=== PATIENT | male | born 1935 | race Caucasian/White ===

== ENCOUNTER → 2018-11-07 | Outpatient (REF) | payer OTHER, MEDICARE | LOC: EEVIPCON 17:20 → M LAB REF 17:20 | PROVIDERS: ATTEND Podiatrist | DX: L03.031 Cellulitis of right toe (principal) ==

== ENCOUNTER → 2018-12-23 | Outpatient (REF) | payer MEDICARE | LOC: M LAB REF 17:50 | PROVIDERS: ATTEND Podiatrist | DX: L97.512 Non-pressure chronic ulcer of other part of right foot with fat layer exposed (principal); M79.674 Pain in right toe(s) ==

== ENCOUNTER → 2019-11-28 | Outpatient (REF) | payer MEDICARE | LOC: M LAB REF 10:53 | PROVIDERS: ATTEND Podiatrist | DX: M79.671 Pain in right foot (principal) ==

== ENCOUNTER → 2020-03-15 | Outpatient (REF) | payer MEDICARE | LOC: M LAB REF 11:23 | PROVIDERS: ATTEND Podiatrist | DX: L03.119 Cellulitis of unspecified part of limb (principal); M79.671 Pain in right foot ==

== ENCOUNTER 2021-11-01 11:08 | Day surgery (SDC) | payer MEDICARE ==
[~2021-11-01] VITALS: Ht 177.8 cm; Wt 80.7 kg
--- OUTSIDE RECORDS SUMMARY | 2021-11-01 11:15 | CCD | Continuity of Care Document ---
Author Author Earnest SNYDER PA Organization Unknown Address [address] [place] [address], [place] [address] Phone [phone] Care Team Providers [facility] Manager Name Role Phone Navarro Daley MD [facility] [phone] Félix Bernal NP AUTM [phone] Problems Active Problems Provider Date Paroxysmal atrial fibrillation Nathan Boateng MD Onset: 0 03/08/2017 Complete atrioventricular block Nathan Boateng MD Onset: 03/08/2017 Essential hypertension Nathan Boateng MD Onset: 7 Cardiac pacemaker in situ Nathan Boateng MD Onset: 2016 Dietary management surveillance RAMYA Asher Onset: 06/06/2019 Social History Type Date Description Comments Sex Unknown ETOH Use Has consumed alcohol in the past Tobacco Use Start: Unknown End: Unknown Patient is a former smoker A few cigar's a week, quit 2002 Exercise Type/Frequency Does housework daily Exercise Type/Frequency Does yardwork daily Exercise Type/Frequency Walks daily Exercise Limitations Shortness Of Breath Exercise Limitations Dizziness Exercise Limitations Fatigue Allergies and adverse reactions Description No Known Drug Allergies Medications Active Medications SIG Qnty Indications Ordering Provide r Date Proair HFA 108(90Base) mcg/Act Aer osol 2 puffs by mouth as needed Unknown 019 Furosemide 20mg Tablets 1 by mouth every day Unknown 06/05/2019 Metoprolol Tartrate 25mg Tablets 1 by mouth twice a day Unknown 06/05/2019 Simvastatin 20mg Tablets 1 by mouth every day Unknown 03/07/[address] 1 by mouth every day Unknown 03/07/2017 Finasteride 5mg Tablets 1 by mouth every day Nathan Boateng MD 03/07/2017 Xarelto 20mg Tablets 1 by mouth every day Unknown 03/07/2017 Immunizations Description No Information Available Vital Signs Date Vital Result Comment 06/06/2019 11:20am Weight 207.00 lb Height 71 inches 5'11" BMI (Body Mass Index) 28.9 kg/m2 Heart Rate 70 /min BP Systolic Sitting 102 mmHg Large adult cuff/LA BP Diastolic Sitting 62 mmHg Large adult cuff/LA 03/08/2017 2:05pm Weight 228.00 lb Height 71 inches 5'11" BMI (Body Mass Index) 31.8 kg/m2 Heart Rate 70 /min BP Systolic Sitting 131 mmHg adult cuff, Ra BP Diastolic Sitting 78 mmHg adult cuff, Ra Results Description No Information Available Procedures Date Code Description Status 10/27/2021 12368 Office/Outpatient Established Mo d MDM 30-39 Min Completed Medical Devices Description No Information Available Encounters Type Date Location Provider Dx Diagnosis Office Visit 10/27/2021 12:45p Main Office RAMYA Mello Z95 .0 Presence of cardiac pacemaker I10 Essential (primary) hyperten migule a I48.0 Paroxysmal atrial fibrillati on Z71.3 Dietary counseling and surve illance Assessments Date Code Description Provider 10/27/2021 Z95.0 Presence of cardiac pacemaker Ca RAMYA Le 10/27/2021 I10 Essential (primary) hypertension RAMYA Mello 10/27/2021 I48.0 Paroxysmal atrial fibrillation C RAMYA Cameron 10/27/2021 Z71.3 Dietary counseling and surveilla nce RAMYA Mello Plan of Treatment 10/27/2021 - RAMYA Mello* Z95.0 Presence of cardiac pacemaker* Recommendations:* Needs urgent battery change * I10 Essential (primary) hypertension* Recommendations:* Continue Advised patient to please monitor blood pressures at home and to alert our office for readings >140/>90 or <110/<60 * I48.0 Paroxysmal atrial fibrillation * Z71.3 Dietary counseling and surveillance* Recommendations:* Recommended for patient to follow a more whole food diet. Advised patient to avoid overly processed foods and packaged foods. Advised patient to avoid sodas, juices and other liquid calories. Recommended at least 30 minutes of exercise 3 days a week. * All * Follow up:* Needs urgent battery change - next week with Dr. Boateng 1 week incision check Functional Status Functional Condition Comment Date Status Independent with all ADL's Activ e Mental Status Description No Information Available Referrals Description No Information Available
--- OUTSIDE RECORDS SUMMARY | 2021-11-01 11:15 | CCD | Continuity of Care Document ---
Author Author Earnest SNYDER PA Organization Unknown Address [address] [place] [address], [facility] [place] [address] Phone [phone] Care Team Providers [facility] Manager Name Role Phone Navarro Daley MD [facility] [phone] Félix Bernal NP [facility] [phone] Problems Active Problems Provider Date Paroxysmal atrial [...] Available Vital Signs Date Vital Result Comment 10/27/2021 1:34pm Weight 200.00 lb Heart Rate 72 /min regular BP Systolic Sitting 128 mmHg Ra, medium cuff BP Diastolic Sitting 72 mmHg Ra, medium cuff 06/06/2019 11:20am Weight 207.00 lb Height 71 inches 5'11" BMI (Body Mass Index) 28.9 kg/m2 Heart Rate 70 /min BP Systolic Sitting 102 mmHg Large adult cuff/LA BP Diastolic Sitting 62 mmHg Large adult cuff/LA Results Test Acquired Date Facility Test Result H/L Range Note CBC without Differential 09/27/2021 [facility] White Blood Count 12.2 Red Blood Count 4.32 Platelets 233 Hemoglobin 13.4 Hematocrit 38.6 Laboratory test finding 09/27/2021 [facility] Lipase 49 Bilirubin, Direct 0.5 Basic Metabolic Panel 09/27/2021 [facility] Glucose 91 Blood Urea Nitrogen 19 Creatinine 1.07 Sodium 133 Potassium 4.3 Chloride 100 Carbon Dioxide 26.0 Calcium 9.2 GFR (Calculated) 65 Liver Function Test/ Liver Hep 09/27/2021 [facility] Ast/Sgot 41 Alt/SGPT 39 Alk Phos 101 Albumin 3.4 Total Bilirubin 1.5 Total Protein 7.1 A/G Ratio -- Procedures Date Code Description Status 10/27/2021 81502 Office/Outpatient Established Mo d MDM 30-39 Min Completed Medical Devices Description No Information Available Encounters Type Date Location Provider Dx Diagnosis Office Visit 10/27/2021 12:45p Main Office RAM[facility] Mello Z95 .0 Presence of cardiac pacemaker I10 Essential (primary) hyperten miguel a I48.0 Paroxysmal atrial fibrillati on Z71.3 [...] * I10 Essential (primary) hypertension* Recommendations:* Continue metoprolol and furosemide at the current dosages Advised patient to please monitor blood pressures at home and to alert our office for readings >140/>90 or <110/<60 * I48.0 Paroxysmal atrial fibrillation* Recommendations:* Continue metoprolol and Xarelto at the current dosages Patient agreeable to contact us with any episodes of tachycardia or palpitations * Z71.3 Dietary counseling and surveillance* Recommendations:* [...]
--- OUTSIDE RECORDS SUMMARY | 2021-11-01 11:16 | CCD ---
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 Name Role Phone Cong Sandhu MD Unavailable Unavailable Cong Sandhu MD Unavailable Unavailable Cong Sandhu MD Unavailable Unavailable Cong Sandhu MD Unavailable Unavailable Cong Sandhu MD Unavailable Unavailable Cong Sandhu MD Unavailable Unavailable Trickey, J Mimi PA Unavailable Unavailable Trickey, J Mimi PA Unavailable Unavailable Trickey, J Mimi PA Unavailable Unavailable Trickey, J Mimi PA Unavailable Unavailable Trickey, J Mimi PA Unavailable Unavailable Trickey, J Mimi PA Unavailable Unavailable Trickey, J Mimi PA Unavailable Unavailable Trickey, J Mimi PA Unavailable Unavailable Trickey, J Mimi PA Unavailable Unavailable Trickey, J Mimi PA Unavailable Unavailable Trickey, J Mimi PA Unavailable Unavailable Trickey, J Mimi PA Unavailable Unavailable Trickey, J Mimi PA Unavailable Unavailable Trickey, J Mimi PA Unavailable Unavailable Trickey, J Mimi PA Unavailable Unavailable Trickey, J Mimi PA Unavailable Unavailable Trickey, J Mimi PA Unavailable Unavailable Trickey, J Mimi PA Unavailable Unavailable Trickey, J Mimi PA Unavailable Unavailable Trickey, J Mimi PA Unavailable Unavailable Trickey, J Mimi PA Unavailable Unavailable Trickey, J Mimi PA Unavailable Unavailable Trickey, J Mimi PA Unavailable Unavailable Trickey, J Mimi PA Unavailable Unavailable Trickey, J Mimi PA Unavailable Unavailable Trickey, J Mimi PA Unavailable Unavailable Trickey, J Mimi PA Unavailable Unavailable Trickey, J Mimi PA Unavailable Unavailable Trickey, J Mimi PA Unavailable Unavailable Trickey, J Mimi PA Unavailable Unavailable Trickey, J Mimi PA Unavailable Unavailable Trickey, J Mimi PA Unavailable Unavailable Trickey, J Mimi PA Unavailable Unavailable Trickey, J Mimi PA Unavailable Unavailable Trickey, J Mimi PA Unavailable Unavailable Trickey, J Mimi PA Unavailable Unavailable Trickey, J Mimi PA Unavailable Unavailable Trickey, J Mimi PA Unavailable Unavailable Trickey, J Mimi PA Unavailable Unavailable Trickey, J Mimi PA Unavailable Unavailable Trickey, J Mimi PA Unavailable Unavailable Trickey, J Mimi PA Unavailable Unavailable Trickey, J Mimi PA Unavailable Unavailable Trickey, J Mimi PA Unavailable Unavailable Trickey, J Mimi PA Unavailable Unavailable Trickey, J Mimi PA Unavailable Unavailable Trickey, J Mimi PA Unavailable Unavailable Trickey, J Mimi PA Unavailable Unavailable Trickey, J Mimi PA Unavailable Unavailable JYOTHI IV, L JOSEPHINE INDUSTRIAL ELECTRICIAN Unavailable Unavailable JYOTHI IV, L JOSEPHINE INDUSTRIAL ELECTRICIAN Unavailable Unavailable JYOTHI IV, L JOSEPHINE INDUSTRIAL ELECTRICIAN Unavailable Unavailable JYOTHI IV, L JOSEPHINE INDUSTRIAL ELECTRICIAN Unavailable Unavailable JYOTHI IV, L JOSEPHINE INDUSTRIAL ELECTRICIAN Unavailable Unavailable JYOTHI IV, L JOSEPHINE INDUSTRIAL ELECTRICIAN Unavailable Unavailable JYOTHI IV, L JOSEPHINE INDUSTRIAL ELECTRICIAN Unavailable Unavailable JYOTHI IV, L JOSEPHINE INDUSTRIAL ELECTRICIAN Unavailable Unavailable JYOTHI IV, L JOSEPHINE INDUSTRIAL ELECTRICIAN Unavailable Unavailable JYOTHI IV, L JOSEPHINE INDUSTRIAL ELECTRICIAN Unavailable Unavailable JYOTHI IV, L JOSEPHINE INDUSTRIAL ELECTRICIAN Unavailable Unavailable JYOTHI IV, L JOSEPHINE INDUSTRIAL ELECTRICIAN Unavailable Unavailable JYOTHI IV, L JOSEPHINE INDUSTRIAL ELECTRICIAN Unavailable Unavailable JYOTHI IV, L JOSEPHINE INDUSTRIAL ELECTRICIAN Unavailable Unavailable JYOTHI IV, L JOSEPHINE INDUSTRIAL ELECTRICIAN Unavailable Unavailable JYOTHI IV, L JOSEPHINE INDUSTRIAL ELECTRICIAN Unavailable Unavailable JYOTHI IV, L JOSEPHINE INDUSTRIAL ELECTRICIAN Unavailable Unavailable JYOTHI IV, L JOSEPHINE INDUSTRIAL ELECTRICIAN Unavailable Unavailable JYOTHI IV, L JOSEPHINE INDUSTRIAL ELECTRICIAN Unavailable Unavailable JYOTHI IV, L JOSEPHINE INDUSTRIAL ELECTRICIAN Unavailable Unavailable JYOTHI IV, L JOSEPHINE INDUSTRIAL ELECTRICIAN Unavailable Unavailable JYOTHI IV, L JOSEPHINE INDUSTRIAL ELECTRICIAN Unavailable Unavailable JYOTHI IV, L JOSEPHINE INDUSTRIAL ELECTRICIAN Unavailable Unavailable JYOTHI IV, L JOSEPHINE INDUSTRIAL ELECTRICIAN Unavailable Unavailable JYOTHI IV, L JOSEPHINE INDUSTRIAL ELECTRICIAN Unavailable Unavailable JYOTHI IV, L JOSEPHINE INDUSTRIAL ELECTRICIAN Unavailable Unavailable JYOTHI IV, L JOSEPHINE INDUSTRIAL ELECTRICIAN Unavailable Unavailable JYOTHI IV, L JOSEPHINE INDUSTRIAL ELECTRICIAN Unavailable Unavailable JYOTHI IV, L JOSEPHINE INDUSTRIAL ELECTRICIAN Unavailable Unavailable JYOTHI IV, L JOSEPHINE INDUSTRIAL ELECTRICIAN Unavailable Unavailable JYOTHI IV, L JOSEPHINE INDUSTRIAL ELECTRICIAN Unavailable Unavailable JYOTHI IV, L JOSEPHINE INDUSTRIAL ELECTRICIAN Unavailable Unavailable JYOTHI IV, L JOSEPHINE INDUSTRIAL ELECTRICIAN Unavailable Unavailable JYOTHI IV, L JOSEPHINE INDUSTRIAL ELECTRICIAN Unavailable Unavailable JYOTHI IV, L JOSEPHINE INDUSTRIAL ELECTRICIAN Unavailable Unavailable JYOTHI IV, L JOSEPHINE INDUSTRIAL ELECTRICIAN Unavailable Unavailable JYOTHI IV, L JOSEPHINE INDUSTRIAL ELECTRICIAN Unavailable Unavailable JYOTHI IV, L JOSEPHINE INDUSTRIAL ELECTRICIAN Unavailable Unavailable JYOTHI IV, L JOSEPHINE INDUSTRIAL ELECTRICIAN Unavailable Unavailable Dumont, Maritza BUI Unavailable + DumontMaritza Unavailable + DumontMaritza Unavailable + DumontMaritza Unavailable + DumontMaritza Unavailable + DumontMaritza Unavailable + DumontMaritza Unavailable + DumontMaritza Unavailable + DumontMaritza Unavailable + DumontMaritza Unavailable + Maritza Dumont Unavailable Lundi, Jagdeep DPM Unavailable Unavailable Lundi, Jagdeep DPM Unavailable Unavailable Lundi, Jagdeep DPM Unavailable Unavailable Lundi, Jagdeep DPM Unavailable Unavailable Lundi, Jagdeep DPM Unavailable Unavailable Lundi, Jagdeep DPM Unavailable Unavailable Lundi, Jagdeep DPM Unavailable Unavailable Lundi, Jagdeep DPM Unavailable Unavailable Lundi, Jagdeep DPM Unavailable Unavailable Lundi, Jagdeep DPM Unavailable Unavailable Lundi, Jagdeep DPM Unavailable Unavailable Lundi, Jagdeep DPM Unavailable Unavailable Lundi, Jagdeep DPM Unavailable Unavailable Lundi, Jagdeep DPM Unavailable Unavailable Lundi, Jagdeep DPM Unavailable Unavailable Lundi, Jagdeep DPM Unavailable Unavailable Lundi, Jagdeep DPM Unavailable Unavailable Lundi, Jagdeep DPM Unavailable Unavailable Lundi, Jagdeep DPM Unavailable Unavailable Lundi, Jagdeep DPM Unavailable Unavailable Lundi, Jagdeep DPM Unavailable Unavailable Lundi, Jagdeep DPM Unavailable Unavailable Lundi, Jagdeep DPM Unavailable Unavailable Lundi, Jagdeep DPM Unavailable Unavailable Lundi, Jagdeep DPM Unavailable Unavailable Liliana Alejo IV INDUSTRIAL ELECTRICIAN Unavailable Unavailable Liliana Alejo IV INDUSTRIAL ELECTRICIAN Unavailable Unavailable Liliana Alejo IV INDUSTRIAL ELECTRICIAN Unavailable Unavailable Melo SULLIVAN, Liliana Lua INDUSTRIAL ELECTRICIAN Unavailable Unavailable WasecaCong Cornelius PA Unavailable Unavailable WasecaCong Cornelius PA Unavailable Unavailable WasecaCong Cornelius PA Unavailable Unavailable WasecaCong Cornelius PA Unavailable Unavailable JYOTHI, E ROXI PREPRESS MANAGER Unavailable Unavailable JYOTHI, E ROXI PREPRESS MANAGER Unavailable Unavailable JYOTHI, E ROXI PREPRESS MANAGER Unavailable Unavailable JYOTHI, E ROXI PREPRESS MANAGER Unavailable Unavailable JYOTHI, E ROXI PREPRESS MANAGER Unavailable Unavailable JYOTHI, E ROXI PREPRESS MANAGER Unavailable Unavailable JYOTHI, E ROXI PREPRESS MANAGER Unavailable Unavailable JYOTHI, E ROXI PREPRESS MANAGER Unavailable Unavailable JYOTHI, E ROXI PREPRESS MANAGER Unavailable Unavailable JYOTHI, E ROXI PREPRESS MANAGER Unavailable Unavailable JYOTHI, E ROXI PREPRESS MANAGER Unavailable Unavailable JYOTHI, E ROXI PREPRESS MANAGER Unavailable Unavailable JYOTHI, E ROXI PREPRESS MANAGER Unavailable Unavailable JYOTHI, E ROXI PREPRESS MANAGER Unavailable Unavailable JYOTHI, E ROXI PREPRESS MANAGER Unavailable Unavailable JYOTHI, E ROXI PREPRESS MANAGER Unavailable Unavailable JYOTHI, E ROXI PREPRESS MANAGER Unavailable Unavailable JYOTHI, E ROXI PREPRESS MANAGER Unavailable Unavailable JYOTHI, E ROXI PREPRESS MANAGER Unavailable Unavailable JYOTHI, E ROXI PREPRESS MANAGER Unavailable Unavailable Steffen ROE PREPRESS MANAGER Unavailable Unavailable Steffen ROE PREPRESS MANAGER Unavailable Unavailable Steffen ROE PREPRESS MANAGER Unavailable Unavailable Steffen ROE PREPRESS MANAGER Unavailable Unavailable Fabi Elkins MD Unavailable Unavailable Fabi Elkins MD Unavailable Unavailable Fabi Elkins MD Unavailable Unavailable Chandler Mcclendon MD Unavailable Unavailable Chandler Mcclendon MD Unavailable Unavailable Chandler Mcclendon MD Unavailable Unavailable Chandler Mcclendon MD Unavailable Unavailable Chandler Mcclendon MD Unavailable Unavailable Chandler Mcclendon MD Unavailable Unavailable Chandler Mcclendon MD Unavailable Unavailable Chandler Mcclendon MD Unavailable Unavailable Chandler Mcclendon MD Unavailable Unavailable Chandler Mcclendon MD Unavailable Unavailable Chandler Mcclendon MD Unavailable Unavailable Chandler Mcclendon MD Unavailable Unavailable Chandler Mcclendon MD Unavailable Unavailable Chandler Mcclendon MD Unavailable Unavailable Chandler Mcclendon MD Unavailable Unavailable Chandler Mcclendon MD Unavailable Unavailable Chandler Mcclendon MD Unavailable Unavailable Chandler Mcclendon MD Unavailable Unavailable Chandler Mcclendon MD Unavailable Unavailable Chandler Mcclendon MD Unavailable Unavailable Chandler Mcclendon MD Unavailable Unavailable ROSA MARIA, JAYLEEN CORTEZ Unavailable Unavailable ROSA MARIA, JAYLEEN MD Unavailable Unavailable ROSA MARIA, JAYLEEN MD Unavailable Unavailable ROSA MARIA, JAYLEEN MD Unavailable Unavailable ROSA MARIA, JAYLEEN MD Unavailable Unavailable ROSA MARIA, JAYLEEN MD Unavailable Unavailable ROSA MARIA, JAYLEEN MD Unavailable Unavailable ROSA MARIA, JAYLEEN MD Unavailable Unavailable ROSA MARIA, JAYLEEN MD Unavailable Unavailable ROSA MARIA, JAYLEEN MD Unavailable Unavailable ROSA MARIA, JAYLEEN MD Unavailable Unavailable ROSA MARIA, JAYLEEN MD Unavailable Unavailable ROSA MARIA, JAYLEEN MD Unavailable Unavailable ROSA MARIA, JAYLEEN MD Unavailable Unavailable ROSA MARIA, JAYLEEN MD Unavailable Unavailable ROSA MARIA, JAYLEEN MD Unavailable Unavailable ROSA MARIA, JAYLEEN MD Unavailable Unavailable ROSA MARIA, JAYLEEN MD Unavailable Unavailable ROSA MARIA, JAYLEEN MD Unavailable Unavailable ROSA MARIA, JAYLEEN MD Unavailable Unavailable ROSA MARIA, JAYLEEN MD Unavailable Unavailable ROSA MARIA, JAYLEEN MD Unavailable Unavailable ROSA MARIA, JAYLEEN MD Unavailable Unavailable ROSA MARIA, JAYLEEN MD Unavailable Unavailable ROSA MARIA, JAYLEEN MD Unavailable Unavailable ROSA MARIA, JAYLEEN MD Unavailable Unavailable ROSA MARIA, JAYLEEN MD Unavailable Unavailable ROSA MARIA, JAYLEEN MD Unavailable Unavailable ROSA MARIA, JAYLEEN MD Unavailable Unavailable ROSA MARIA, JAYLEEN MD Unavailable Unavailable ROSA MARIA, JAYLEEN MD Unavailable Unavailable ROSA MARIA, JAYLEEN MD Unavailable Unavailable ROSA MARIA, JAYLEEN MD Unavailable Unavailable ROSA MARIA, JAYLEEN MD Unavailable Unavailable ROSA MARIA, JAYLEEN MD Unavailable Unavailable ROSA MARIA, JAYLEEN MD Unavailable Unavailable ROSA MARIA, JAYLEEN MD Unavailable Unavailable ROSA MARIA, JAYLEEN MD Unavailable Unavailable ROSA MARIA, JAYLEEN MD Unavailable Unavailable ROSA MARIA, JAYLEEN MD Unavailable Unavailable ROSA MARIA, JAYLEEN MD Unavailable Unavailable ROSA MARIA, JAYLEEN MD Unavailable Unavailable ROSA MARIA, JAYLEEN MD Unavailable Unavailable Lucille Peck MD Unavailable Unavailable LILLIAN, L BROOKE PA Unavailable Unavailable LILLIAN, L BROOKE PA Unavailable Unavailable LILLIAN, L BROOKE PA Unavailable Unavailable LILLIAN, L BROOKE PA Unavailable Unavailable LILLIAN, L BROOKE PA Unavailable Unavailable LILLIAN, L BROOKE PA Unavailable Unavailable LILLIAN, L BROOKE PA Unavailable Unavailable LILLIAN, L BROOKE PA Unavailable Unavailable LILLIAN, L BROOKE PA Unavailable Unavailable LILLIAN, L BROOKE PA Unavailable Unavailable LILLIAN, L BROOKE PA Unavailable Unavailable LILLIAN, L BROOKE PA Unavailable Unavailable LILLIAN, L BROOKE PA Unavailable Unavailable LILLIAN, L BROOKE PA Unavailable Unavailable LILLIAN, L BROOKE PA Unavailable Unavailable LILLIAN, L BROOKE PA Unavailable Unavailable ROSA MARIA, JAYLEEN MD Unavailable Unavailable ROSA MARIA, JAYLEEN MD Unavailable Unavailable ROSA MARIA, JAYLEEN MD Unavailable Unavailable ROSA MARIA, JAYLEEN MD Unavailable Unavailable ROSA MARIA, JAYLEEN MD Unavailable Unavailable ROSA MARIA, JAYLEEN MD Unavailable Unavailable ROSA MARIA, JAYLEEN MD Unavailable Unavailable ROSA MARIA, JAYLEEN MD Unavailable Unavailable ROSA MARIA, JAYLEEN MD Unavailable Unavailable ROSA MARIA, JAYLEEN MD Unavailable Unavailable ROSA MARIA, JAYLEEN MD Unavailable Unavailable ROSA MARIA, JAYELEN MD Unavailable Unavailable ROSA MARIA, JAYLEEN MD Unavailable Unavailable ROSA MARIA, JAYLEEN MD Unavailable Unavailable ROSA MARIA, JAYLEEN MD Unavailable Unavailable ROSA MARIA, JAYLEEN MD Unavailable Unavailable ROSA MARIA, JAYLEEN MD Unavailable Unavailable ROSA MARIA, JAYLEEN MD Unavailable Unavailable ROSA MARIA, JAYLEEN MD Unavailable Unavailable ROSA MARIA, JAYLEEN MD Unavailable Unavailable ROSA MARIA, JAYLEEN MD Unavailable Unavailable ROSA MARIA, JAYLEEN MD Unavailable Unavailable ROSA MARIA, JAYLEEN MD Unavailable Unavailable ROSA MARIA, JAYLEEN MD Unavailable Unavailable ROSA MARIA, JAYLEEN MD Unavailable Unavailable ROSA MARIA, JAYLEEN MD Unavailable Unavailable ROSA MARIA, JAYLEEN MD Unavailable Unavailable ROSA MARIA, JAYLEEN MD Unavailable Unavailable ROSA MARIA, JAYLEEN MD Unavailable Unavailable ROSA MARIA, JAYLEEN MD Unavailable Unavailable ROSA MARIA, JAYLEEN MD Unavailable Unavailable ROSA MARIA, JAYLEEN MD Unavailable Unavailable ROSA MARIA, JAYLEEN MD Unavailable Unavailable ROSA MARIA, JAYLEEN MD Unavailable Unavailable ROSA MARIA, JAYLEEN MD Unavailable Unavailable ROSA MARIA, JAYLEEN MD Unavailable Unavailable ROSA MARIA, JAYLEEN MD Unavailable Unavailable ROSA MARIA, JAYLEEN MD Unavailable Unavailable ROSA MARIA, JAYLEEN MD Unavailable Unavailable ROSA MARIA, JAYLEEN MD Unavailable Unavailable ROAS MARIA, JAYLEEN MD Unavailable Unavailable ROSA MARIA, JAYLEEN MD Unavailable Unavailable ROSA MARIA, JAYLEEN MD Unavailable Unavailable Cisco, Lucille Mejia MD Unavailable Unavailable Cisco, Lucille Mejia MD Unavailable Unavailable BROUGHAL, C IBIS PA Unavailable Unavailable BROUGHAL, C IBIS PA Unavailable Unavailable BROUGHAL, C IBIS PA Unavailable Unavailable BROUGHAL, C IBIS PA Unavailable Unavailable BROUGHAL, C IBIS PA Unavailable Unavailable BROUGHAL, C IBIS PA Unavailable Unavailable DAY, LARS MD Unavailable Unavailable DAY, LARS MD Unavailable Unavailable DAY, LARS MD Unavailable Unavailable DAY, LARS MD Unavailable Unavailable DAY, LARS MD Unavailable Unavailable DAY, LARS MD Unavailable Unavailable DAY, LARS MD Unavailable Unavailable DAY, LARS MD Unavailable Unavailable DAY, LARS MD Unavailable Unavailable DAY, LARS MD Unavailable Unavailable DAY, LARS MD Unavailable Unavailable DAY, LARS MD Unavailable Unavailable DAY, LARS MD Unavailable Unavailable DAY, LARS MD Unavailable Unavailable DAY, LARS MD Unavailable Unavailable DAY, LARS MD Unavailable Unavailable DAY, LARS MD Unavailable Unavailable DAY, LARS MD Unavailable Unavailable DAY, LARS MD Unavailable Unavailable DAY, LARS MD Unavailable Unavailable DAY, LARS MD Unavailable Unavailable DAY, LARS MD Unavailable Unavailable DAY, LARS MD Unavailable Unavailable DAY, LARS MD Unavailable Unavailable DAY, LARS MD Unavailable Unavailable DAY, LARS MD Unavailable Unavailable DAY, LARS MD Unavailable Unavailable DAY, LARS MD Unavailable Unavailable Re-disclosure Warning The records that you are about to access may contain information from federally-assisted alcohol or drug abuse programs. If such information is present, then the following federally mandated warning applies: This information has been disclosed to you from records protected by federal confidentiality rules (42 CFR part 2). The federal rules prohibit you from making any further disclosure of this information unless further disclosure is expressly permitted by the written consent of the person to whom it pertains or as otherwise permitted by 42 CFR part 2. A general authorization for the release of medical or other information is NOT sufficient for this purpose. The Federal rules restrict any use of the information to criminally investigate or prosecute any alcohol or drug abuse patient.The records that you are about to access may contain highly sensitive health information, the redisclosure of which is protected by Article 27-F of the [facility] Public Health law. If you continue you may have access to information: Regarding HIV / AIDS; Provided by facilities licensed or operated by the [facility] Office of Mental Health; or Provided by the [facility] Office for People With Developmental Disabilities. If such information is present, then the following [facility] mandated warning applies: This information has been disclosed to you from confidential records which are protected by state law. State law prohibits you from making any further disclosure of this information without the specific written consent of the person to whom it pertains, or as otherwise permitted by law. Any unauthorized further disclosure in violation of state law may result in a fine or custodial sentence or both. A general authorization for the release of medical or other information is NOT sufficient authorization for further disc losure. Family History Family Member Name Family Member Gender Family Member Status Date o f Status Description Data Source(s) Unknown Male Problem [facility] ([facility] Encounters Encounter Providers Location Date Indications Data Source(s ) Outpatient Attender: BROOKE BUI Main Office 10/27/2021 1 1:45:00 AM EST [facility] ([facility] Outpatient Attender: JOSEPHINE ROE ED-HCCEDWPC 2020 10:58:00 AM EST - 10/13/2021 10:59:00 AM EST [facility] Patient discharged. Outpatient Attender: Jagdeep Zambrano DPM 09/30/2021 01:28:00 PM EDT [facility] Emergency Attender: Amish Sandhu MDA ttender: Jackie Peck MDAttender: Jackie Peck MD [facility]-ED 09/27/2021 07:11:00 PM EDT - 09/28/2021 04:15:00 AM EDT [facility] Patient discharged. Outpatient Attender: JOSEPHINE ROE IV ED-HCCEDWPCP 2020 11:03:00 AM EDT - 09/06/2021 11:04:00 AM EDT [facility] Patient discharged. [place] [address] [facility] [address] 06/09/2021 12:00:00 AM EDT eCW1 ([facility]) [place] [address] [facility] [address] 06/08/2021 12:00:00 AM EDT eCW1 ([facility]) Outpatient Attender: Baltazar Mcclendon MD [facility] 09:53:00 AM EDT - 05/05/2021 09:54:00 [facility]. Emergency Attender: Lizette Munoz PAAttender: Isiah hernández MD [facility] 04/14/2021 03:59:00 PM EDT - 04/14/2021 06:06:00 PM EDT HIP PAIN,HIGH BLOOD PRESSURE,CHEST PAIN [facility] HIP PAIN,HIGH BLOOD PRESSURE,CHEST PAIN Patient discharged. [place] [address] [facility] [address] 03/30/2021 12:00:00 AM EDT eCW1 ([facility]) [place] [address] [facility] [address] 03/23/2021 12:00:00 AM EDT eCW1 ([facility]) [place] [address] [address] 03/03/2021 12:00:00 AM EDT eCW1 ([facility]) [place] [address] [address] 01/27/2021 12:00:00 AM EST eCW1 [facility] [place] [address] [facility] [address] 01/18/2021 12:00:00 AM EST eCW1 [facility] [place] [address] [address] 12/20/2020 12:00:00 AM EST eCW1 ([facility]) [place] [address] [address] 12/16/2020 12:00:00 AM EST eCW1 ([facility]) [place] [address] [facility] [address] 12/14/2020 12:00:00 AM EST eCW1 ([facility]) Outpatient Attender: Mimi BUI Main office [facility] 11/29/2020 01:00:00 PM EST MEDENT ([facility] Anupama andrews, [facility]) Emergency Attender: Stoney Alejo IVAttender: Isiah tian MD [facility]-ED 11/15/2020 11:06:00 AM EST - 11/15/2020 03:00:00 PM EST ALTERED MENTAL STATUS [facility] ALTERED MENTAL STATUS Patient discharged. Outpatient Attender: Baltazar Mcclendon MD [facility] 07:48:00 AM EST - 11/02/2020 07:49:00 AM EST [facility] Patient discharged. Outpatient Attender: JAYLEEN CRANE MD [facility] 10/25/2020 09:48:00 A [facility] Outpatient Attender: IBIS BUI [facility] 11/28/2019 11:15:00 AM EST COVID TEST, TRAVEL [facility] COVID TEST, TRAVEL Emergency Attender: Isiah Elkins [facility] 02:18:00 PM EDT - 09/20/2020 03:53:00 PM EDT [facility] Patient discharged. Preadmit Attender: Isiah Elkins MD [facility] 09/20/2020 02:18 :00 PM EDT [facility] Emergency Attender: Stoney Dumont PAAttender: Isiah mireles MD [facility]-ED 09/20/2020 02:18:00 PM EDT - 09/20/2020 03:53:00 PM EDT ARM INJURY [facility] ARM INJURY Patient discharged. Outpatient Attender: JAYLEEN CRANE MD Main [facility] 09/13/2020 01:00:00 PM EDT MEDENT ([facility] Anupama andrews, [facility]) Outpatient Attender: ROXI ROE NP [facility] 06/07/2020 09:17:00 A M EDT [facility] Outpatient Attender: IKER DAY MD [facility] 11/07/2019 11:00:00 AM EST [facility] Immunizations Vaccine Date Status Description Data Source(s) COVID-19 VACCINE Pfizer 10/25/2021 12:00:00 AM EST completed [facility] Vaccine Series Complete: YESThis Data wa s Submitted to [facility] Via [employer]. COVID-19 VACC, MRNA([facility])/PF 10/25/2021 12:00:00 AM EST completed [facility] COVID-19 VACCINE Pfizer 01/22/2021 12:00:00 AM EST completed [facility] Vaccine Series Complete: YESThis Data wa s Submitted to [facility] Via [employer]. COVID-19 VACCINE Pfizer 01/01/2021 12:00:00 AM EST completed [facility] Vaccine Series Complete: NOThis Data was Submitted to [facility] Via [employer]. Medications Medication Brand Name Start Date Product Form Dose Route Admi nistrative Instructions Pharmacy Instructions Status Indications Reaction Description Data Source(s) Finasteride 5 MG Oral Tablet FINASTERIDE 10/21/2021 12:00:00 AM EST ta blet 90 TAKE ONE TABLET BY MOUTH EVERY DAY TAKE ONE TABLET BY MOUTH EVERY DAY SOLD: 10/22/2021 [facility] 240 mcg/0.7 mL 09/15/2021 12:00:00 AM EDT syringe 0 USE DIRECTED USE DIRECTED SOLD: 09/15/2021 [facility] 8 mg 08/03/2021 12:00:00 AM EDT tablet extended release 24 hr 30 TAKE ONE TABLET BY MOUTH EVERY DAY TAKE ONE TABLET BY MOUTH EVERY DAY SOLD: 09/28/2021 [facility] 8 mg 08/03/2021 12:00:00 AM EDT tablet extended release 24 hr 30 TAKE ONE TABLET BY MOUTH EVERY DAY TAKE ONE TABLET BY MOUTH EVERY DAY SOLD: 08/03/2021 [facility] 8 mg 08/03/2021 12:00:00 AM EDT tablet extended release 24 hr 30 TAKE ONE TABLET BY MOUTH EVERY DAY TAKE ONE TABLET BY MOUTH EVERY DAY SOLD: 09/01/2021 [facility] 2 % 04/09/2021 12:00:00 AM EDT cream 30 APPLY TO AFFECTED AREA(S) ONCE DAILY APPLY TO AFFECTED AREA(S) ONCE DAILY SOLD: 04/16/2021 [facility] 2 % 04/09/2021 12:00:00 AM EDT cream 30 APPLY TO AFFECTED AREA(S) ONCE DAILY APPLY TO AFFECTED AREA(S) ONCE DAILY SOLD: 06/08/2021 [facility] 20 mg 03/07/2021 12:00:00 AM EDT capsule,delayed release (DR/EC) 90 TAKE ONE CAPSULE BY MOUTH EVERY DAY TAKE ONE CAPSULE BY MOUTH EVERY DAY SOLD: 03/09/2021 [facility] 20 mg 03/07/2021 12:00:00 AM EDT capsule,delayed release (DR/EC) 90 TAKE ONE CAPSULE BY MOUTH EVERY DAY TAKE ONE CAPSULE BY MOUTH EVERY DAY SOLD: 09/13/2021 [facility] 20 mg 03/07/2021 12:00:00 AM EDT capsule,delayed release (DR/EC) 90 TAKE ONE CAPSULE BY MOUTH EVERY DAY TAKE ONE CAPSULE BY MOUTH EVERY DAY SOLD: 06/16/2021 [facility] 0.4 mg 03/05/2021 12:00:00 AM EDT capsule 180 TAKE TWO CAPSULES BY MOUTH AT BEDTIME TAKE TWO CAPSULES BY MOUTH AT BEDTIME SOLD: 03/06/2021 [facility] 0.4 mg 03/05/2021 12:00:00 AM EDT capsule 180 TAKE TWO CAPSULES BY MOUTH AT BEDTIME TAKE TWO CAPSULES BY MOUTH AT BEDTIME SOLD: 06/08/2021 [facility] 0.4 mg 03/05/2021 12:00:00 AM EDT capsule 180 TAKE TWO CAPSULES BY MOUTH AT BEDTIME TAKE TWO CAPSULES BY MOUTH AT BEDTIME SOLD: 09/09/2021 [facility] 20 mg 02/12/2021 12:00:00 AM EDT tablet 90 TAKE ONE TABLET BY MOUTH EVERY EVENING TAKE ONE TABLET BY MOUTH EVERY EVENING SOLD: 08/17/2021 [facility] 20 mg 02/12/2021 12:00:00 AM EDT tablet 90 TAKE ONE TABLET BY MOUTH EVERY EVENING TAKE ONE TABLET BY MOUTH EVERY EVENING SOLD: 02/13/2021 [facility] 20 mg 02/12/2021 12:00:00 AM EDT tablet 90 TAKE ONE TABLET BY MOUTH EVERY EVENING TAKE ONE TABLET BY MOUTH EVERY EVENING SOLD: 05/18/2021 [facility] 2 % 02/11/2021 12:00:00 AM EDT cream 45 APPLY 1 APPLICATION TO AFFECTED AREA(S) DAILY APPLY 1 APPLICATION TO AFFECTED AREA(S) DAILY SOLD: 02/13/2021 [facility] 0.4 mg 01/28/2021 12:00:00 AM EST capsule 90 TAKE TWO CAPSULES BY MOUTH EVERY DAY AT BEDTIME TAKE TWO CAPSULES BY MOUTH EVERY DAY AT BEDTIME SOLD: 01/28/2021 [facility] Finasteride 5 MG Oral Tablet FINASTERIDE 12/31/2020 12:00:00 AM EST ta blet 90 TAKE ONE TABLET BY MOUTH EVERY DAY TAKE ONE TABLET BY MOUTH EVERY DAY SOLD: 07/16/2021 [facility] Finasteride 5 MG Oral Tablet FINASTERIDE 12/31/2020 12:00:00 AM EST ta blet 90 TAKE ONE TABLET BY MOUTH EVERY DAY TAKE ONE TABLET BY MOUTH EVERY DAY SOLD: 04/06/2021 [facility] Finasteride 5 MG Oral Tablet FINASTERIDE 12/31/2020 12:00:00 AM EST ta blet 90 TAKE ONE TABLET BY MOUTH EVERY DAY TAKE ONE TABLET BY MOUTH EVERY DAY SOLD: 01/01/2021 [facility] 50 mg 12/28/2020 12:00:00 AM EST tablet extended release 24 hr 30 TAKE ONE TABLET BY MOUTH EVERY DAY TAKE ONE TABLET BY MOUTH EVERY DAY SOLD: 01/24/2021 [facility] 50 mg 12/28/2020 12:00:00 AM EST tablet extended release 24 hr 30 TAKE ONE TABLET BY MOUTH EVERY DAY TAKE ONE TABLET BY MOUTH EVERY DAY SOLD: 12/29/2020 [facility] 24 HR mirabegron 50 MG Extended Release Oral Tablet [M yrbetriq] Myrbetriq 50 MG Myrbetriq 50 MG 12/20/2020 12:00:00 AM EST 1.0 {tablet} active Myrbetriq 50 MG eCW1 ([facility]) 24 HR mirabegron 50 MG Extended Release Oral Tablet [M yrbetriq] Myrbetriq 50 MG Myrbetriq 50 MG 12/20/2020 12:00:00 AM EST 1.0 {tablet} active Myrbetriq 50 MG eCW1 ([facility]) 24 HR Fesoterodine Fumarate 4 MG Extende d Release Oral Tablet [Toviaz] Toviaz 4 MG Toviaz 4 MG 12/20/2020 12:00:00 AM EST 1.0 {tablet} active Toviaz 4 MG eCW1 ([facility]) 24 HR Fesoterodine Fumarate 4 MG Extende d Release Oral Tablet [Toviaz] Toviaz 4 MG Toviaz 4 MG 12/20/2020 12:00:00 AM EST 1.0 {tablet} active Toviaz 4 MG eCW1 ([facility]) 24 HR mirabegron 50 MG Extended Release Oral Tablet [M yrbetriq] Myrbetriq 50 MG Myrbetriq 50 MG 12/20/2020 12:00:00 AM EST 1.0 {tablet} suspended Myrbetriq 50 MG eCW1 ([facility]) 24 HR Fesoterodine Fumarate 4 MG Extende d Release Oral Tablet [Toviaz] Toviaz 4 MG Toviaz 4 MG 12/20/2020 12:00:00 AM EST 1.0 {tablet} active Toviaz 4 MG eCW1 ([facility]) 24 HR Fesoterodine Fumarate 4 MG Extende d Release Oral Tablet [Toviaz] Toviaz 4 MG Toviaz 4 MG 12/20/2020 12:00:00 AM EST 1.0 {tablet} active Toviaz 4 MG eCW1 ([facility]) 24 HR Fesoterodine Fumarate 4 MG Extende d Release Oral Tablet [Toviaz] Toviaz 4 MG Toviaz 4 MG 12/20/2020 12:00:00 AM EST 1.0 {tablet} active Toviaz 4 MG eCW1 ([facility]) 24 HR mirabegron 50 MG Extended Release Oral Tablet [M yrbetriq] Myrbetriq 50 MG Myrbetriq 50 MG 12/20/2020 12:00:00 AM EST 1.0 {tablet} active Myrbetriq 50 MG eCW1 ([facility]) 24 HR mirabegron 50 MG Extended Release Oral Tablet [M yrbetriq] Myrbetriq 50 MG Myrbetriq 50 MG 12/20/2020 12:00:00 AM EST 1.0 {tablet} active Myrbetriq 50 MG eCW1 ([facility]) 24 HR Fesoterodine Fumarate 4 MG Extende d Release Oral Tablet [Toviaz] Toviaz 4 MG Toviaz 4 MG 12/20/2020 12:00:00 AM EST 1.0 {tablet} active Toviaz 4 MG eCW1 ([facility]) 24 HR Fesoterodine Fumarate 4 MG Extende d Release Oral Tablet [Toviaz] Toviaz 4 MG Toviaz 4 MG 12/20/2020 12:00:00 AM EST 1.0 {tablet} active Toviaz 4 MG eCW1 ([facility]) 24 HR Fesoterodine Fumarate 4 MG Extende d Release Oral Tablet [Toviaz] Toviaz 4 MG Toviaz 4 MG 12/20/2020 12:00:00 AM EST 1.0 {tablet} active Toviaz 4 MG eCW1 ([facility]) 24 HR mirabegron 50 MG Extended Release Oral Tablet [M yrbetriq] Myrbetriq 50 MG Myrbetriq 50 MG 12/20/2020 12:00:00 AM EST 1.0 {tablet} active Myrbetriq 50 MG eCW1 ([facility]) 24 HR mirabegron 50 MG Extended Release Oral Tablet [M yrbetriq] Myrbetriq 50 MG Myrbetriq 50 MG 12/20/2020 12:00:00 AM EST 1.0 {tablet} active Myrbetriq 50 MG eCW1 ([facility]) 24 HR mirabegron 50 MG Extended Release Oral Tablet [M yrbetriq] Myrbetriq 50 MG Myrbetriq 50 MG 12/20/2020 12:00:00 AM EST 1.0 {tablet} active Myrbetriq 50 MG eCW1 ([facility]) 24 HR Fesoterodine Fumarate 4 MG Extende d Release Oral Tablet [Toviaz] Toviaz 4 MG Toviaz 4 MG 12/20/2020 12:00:00 AM EST 1.0 {tablet} active Toviaz 4 MG eCW1 ([facility]) 24 HR mirabegron 50 MG Extended Release Oral Tablet [M yrbetriq] Myrbetriq 50 MG Myrbetriq 50 MG 12/20/2020 12:00:00 AM EST 1.0 {tablet} active Myrbetriq 50 MG eCW1 ([facility]) 24 HR Fesoterodine Fumarate 4 MG Extende d Release Oral Tablet [Toviaz] Toviaz 4 MG Toviaz 4 MG 12/20/2020 12:00:00 AM EST 1.0 {tablet} active Toviaz 4 MG eCW1 ([facility]) 24 HR mirabegron 50 MG Extended Release Oral Tablet [M yrbetriq] Myrbetriq 50 MG Myrbetriq 50 MG 12/20/2020 12:00:00 AM EST 1.0 {tablet} suspended Myrbetriq 50 MG eCW1 ([facility]) 25 mg 12/14/2020 12:00:00 AM EST tablet 90 TAKE ONE TABLET BY MOUTH EVERY DAY WITH FOOD TAKE ONE TABLET BY MOUTH EVERY DAY WITH FOOD SOLD: 12/16/2020 [facility] 25 mg 12/14/2020 12:00:00 AM EST tablet 90 TAKE ONE TABLET BY MOUTH EVERY DAY WITH FOOD TAKE ONE TABLET BY MOUTH EVERY DAY WITH FOOD SOLD: 04/16/2021 [facility] 25 mg 12/14/2020 12:00:00 AM EST tablet 90 TAKE ONE TABLET BY MOUTH EVERY DAY WITH FOOD TAKE ONE TABLET BY MOUTH EVERY DAY WITH FOOD SOLD: 07/20/2021 [facility] No Active Medications 11/30/2020 12:00:00 AM EST completed [facility] ([facility]) PT: Evaluate And Treat 11/30/2020 12:00:00 AM EST active [facility] ([facility]) 20 mg 11/29/2020 12:00:00 AM EST tablet 90 TAKE ONE TABLET BY MOUTH EVERY DAY WITH FOOD TAKE ONE TABLET BY MOUTH EVERY DAY WITH FOOD SOLD: 08/17/2021 [facility] 20 mg 11/29/2020 12:00:00 AM EST tablet 90 TAKE ONE TABLET BY MOUTH EVERY DAY WITH FOOD TAKE ONE TABLET BY MOUTH EVERY DAY WITH FOOD SOLD: 02/19/2021 [facility] 20 mg 11/29/2020 12:00:00 AM EST tablet 90 TAKE ONE TABLET BY MOUTH EVERY DAY WITH FOOD TAKE ONE TABLET BY MOUTH EVERY DAY WITH FOOD SOLD: 12/01/2020 [facility] 20 mg 11/29/2020 12:00:00 AM EST tablet 90 TAKE ONE TABLET BY MOUTH EVERY DAY WITH FOOD TAKE ONE TABLET BY MOUTH EVERY DAY WITH FOOD SOLD: 05/27/2021 [facility] 2 % 11/26/2020 12:00:00 AM EST cream 30 APPLY EXTERNALLY TO AFFECTED AREA ONCE DAILY APPLY EXTERNALLY TO AFFECTED AREA ONCE DAILY SOLD: 01/17/2021 [facility] 2 % 11/26/2020 12:00:00 AM EST cream 45 APPLY EXTERNALLY TO AFFECTED AREA ONCE DAILY APPLY EXTERNALLY TO AFFECTED AREA ONCE DAILY SOLD: 01/17/2021 [facility] 90 mcg/actuation 11/24/2020 12:00:00 AM EST HFA aerosol inha ler 8 INHALE TWO PUFFS BY MOUTH EVERY 6 HOURS NEEDED INHALE TWO PUFFS BY MOUTH EVERY 6 HOURS NEEDED SOLD: 11/24/2020 [facility] 90 mcg/actuation 11/24/2020 12:00:00 AM EST HFA aerosol inha ler 8 INHALE TWO PUFFS BY MOUTH EVERY 6 HOURS NEEDED INHALE TWO PUFFS BY MOUTH EVERY 6 HOURS NEEDED SOLD: 08/17/2021 [facility] 20 mg 11/22/2020 12:00:00 AM EST capsule,delayed release (DR/EC) 90 TAKE ONE CAPSULE BY MOUTH EVERY DAY TAKE ONE CAPSULE BY MOUTH EVERY DAY SOLD: 11/24/2020 [facility] 2 % 08/03/2020 12:00:00 AM EDT cream 90 APPLY TO AFFECTED AREA(S) ONCE DAILY APPLY TO AFFECTED AREA(S) ONCE DAILY SOLD: 07/16/2021 [facility] 25 mg 04/27/2020 12:00:00 AM EDT tablet 30 TAKE 1 TABLET BY MOUTH 1 TO 3 HOURS PRIOR TO INTERCOURSE NEEDED TAKE 1 TABLET BY MOUTH 1 TO 3 HOURS PRIO R TO INTERCOURSE NEEDED SOLD: 11/29/2020 [facility] 20 mg 01/28/2020 12:00:00 AM EST tablet 90 TAKE ONE TABLET BY MOUTH EVERY EVENING TAKE ONE TABLET BY MOUTH EVERY EVENING SOLD: 10/31/2020 [facility] 0.4 mg 01/08/2020 12:00:00 AM EST capsule 180 TAKE TWO CAPSULES BY MOUTH EVERY DAY AT BEDTIME TAKE TWO CAPSULES BY MOUTH EVERY DAY AT BEDTIME SOLD: 10/08/2020 [facility] Finasteride 5 MG Oral Tablet FINASTERIDE 12/11/2019 12:00:00 AM EST ta blet 90 TAKE ONE TABLET BY MOUTH EVERY DAY TAKE ONE TABLET BY MOUTH EVERY DAY SOLD: 09/29/2020 [facility] 20 mg 12/11/2019 12:00:00 AM EST tablet 90 TAKE ONE TABLET BY MOUTH EVERY DAY WITH FOOD TAKE ONE TABLET BY MOUTH EVERY DAY WITH FOOD SOLD: 09/07/2020 [facility] 25 mg 12/11/2019 12:00:00 AM EST tablet 90 TAKE ONE TABLET BY MOUTH EVERY DAY WITH FOOD TAKE ONE TABLET BY MOUTH EVERY DAY WITH FOOD SOLD: 09/17/2020 [facility] Insurance Providers Payer name Policy type / Coverage type Policy ID Covered constitution party ID Covered constitution party's relationship to craig Policy Craig Plan Information MEDICARE [id number] SP [id number] A UHC UNITED MEDICARE COMPLETE G [id number] Self [id number] MEDICARE COMPLETE [id number] SP [id number] UNITED HEALTH MEDICARE [id number] S [id number] MEDICARE COMPLETE[facility] O [id number] S [id number] MEDICARE COMPLETE [id number] SP [id number] [facility] HEALTH CARE OPTIONS [id number] SP [id number] MEDICARE COMPLETE [id number] SP [id number] [facility] HE[facility]ARE OPTIONS [id number] S [id number] MEDICARE [id number] S [id number] MEDICARE [id number] Retired [id number] [facility] HE[facility]ARE OPTIONS [id number] Retired [id number] UNITED HEALTH MEDICARE [id number] S [id number] [facility] HEALTH CARE OPTIONS [id number] SP [id number] [facility] [id number] SP [id number] [facility] [id number] SP [id number] MEDICARE [id number] SP [id number] [id number] MEDICARE [id number] S [id number] V49 [facility] OPTIONS [id number] S [id number] [id number] [id number] S [id number] [id number] [employer] MEDICAL PLAN [id number] [place] [id number] [employer] [id number] S [id number] [facility] Commercial [id number] Self [id number] [facility] Healthcare Options [place] Part B [id number] Self [id number] Medicare (Part B) Medicare Primary [id number] Self [id number] [facility] Part B [id number] Self [id number] [facility] [employer] Commercial [id number] Self [id number] [facility] Healthcare Options [facility] Part B [id number] Self [id number] Medicare (Part B) Medicare Primary [id number] Self [id number] [id number] SPOUSE [id number] [facility] [id number] SP [id number] [employer] EM[employer]OYE[employer] MEDICAL PLAN [id number] [place] [id number] [facility] [employer] Commercial [id number] Self [id number] [facility] Part B [id number] Self [id number] [facility] [employer] Commercial [id number] Self [id number] [facility] -O/P [id number] 18 [id number] [employer] C[employer]TR[employer] O [id number] S [id number] RMO CENTRAL O [id number] S [id number] UNITED HEALTHCARE MEDICARE ADVANTAGE [id number] 1 [id number] [facility] HEALTH CARE OPTIONS -O/P [id number] 18 [id number] MEDICARE -O/P [id number] A [id number] A MEDICARE COMPLETE [id number] SP [id number] UNITED HEALTH MEDICARE [id number] Retired [id number] [facility] HORIZONS [id number] S [id number] Problems, Conditions, and Diagnoses Code Display Name Description Problem Type Effective Dates Data Source(s) Z95.0 Presence of cardiac pacemaker PRESENCE OF CARDIAC PACE MAKER Diagnosis 09/27/2021 07:11:00 PM [facility] Z79.01 assisted (current) use of anticoagulant s LONG-TERM (CURRENT) USE OF ANTICOAGULANTS Diagnosis 09/27/2021 07:11:00 PM [facility] I10 Essential (primary) hypertension ESSENTIAL (PRIMARY) H YPERTENSION Diagnosis 09/27/2021 07:11:00 PM [facility] K59.00 Constipation, unspecified CONSTIPATION, UNSPECIFIED Di agnosis 09/27/2021 07:11:00 PM [facility] H61.23 Impacted cerumen, bilateral IMPACTED CERUMEN, BILATERA L Diagnosis 05/05/2021 09:53:00 AM [facility] Z79.899 Other intermediate card tender (current) drug therapy O THER LONG-TERM (CURRENT) DRUG THERAPY Diagnosis 04/14/2021 03:59:00 PM [facility] E78.5 Hyperlipidemia, unspecified HYPERLIPIDEMIA, UNSPECIFIE D Diagnosis 04/14/2021 03:59:00 PM [facility] N40.0 Benign prostatic hyperplasia without low er urinary tract symptoms BENIGN PROSTATIC HYPERPLASIA WITHOUT LOWER URINRY TRACT SYMP Diagnosis 04/14/2021 03:59:00 PM [facility] I48.91 Unspecified atrial fibrillation UNSPECIFIED ATRI AL FIBRILLATION Diagnosis 04/14/2021 03:59:00 PM [facility] M25.551 Pain in right hip PAIN IN RIGHT HIP Diagnosis 04/14 03:59:00 PM [facility] R07.89 Other chest pain OTHER CHEST PAIN Diagnosis 04/14/2021 03 :59:00 PM [facility] Z87.891 Personal history of nicotine dependence PERSONAL HISTORY OF NICOTINE DEPENDENCE Diagnosis 11/15/2020 11:06:00 AM [facility] R55 Syncope and collapse SYNCOPE AND COLLAPSE Diagnosis 11/15/2020 11:06:00 AM [facility] M62.9 Disorder of muscle, unspecified DISORDER OF MUSCLE, UN SPECIFIED Diagnosis 10/25/2020 09:48:00 AM [facility] M54.5 Low back pain LOW BACK PAIN Diagnosis 10/25/2020 09:48:00 AM [facility] Y92.[address] or not applicable UNSPECIFIED PLACE OR NOT APPLICABLE Diagnosis 09/20/2020 02:18:00 PM [facility] Y93.01 Activity, walking, marching and hiking A CTIVITY, WALKING, MARCHING AND HIKING Diagnosis 09/20/2020 02:18:00 PM [facility] W19.XXXA Unspecified fall, initial encounter UNSP ECIFIED FALL, INITIAL ENCOUNTER Diagnosis 09/20/2020 02:18:00 PM [facility] S63.591A Other specified sprain of right wrist, i nitial encounter OTHER SPECIFIED SPRAIN OF RIGHT WRIST, INITIAL ENCOUNTER Diagnosis 02:18:00 PM [facility] S40.011A Contusion of right shoulder, initial enc ounter CONTUSION OF RIGHT SHOULDER, INITIAL ENCOUNTER Diagnosis 09/20/2020 02:18:00 PM [facility] R35.0 Urinary frequency Urinary frequency Problem 01/18/2021 12:00:00 AM EST eCW1 ([facility]) Surgeries/Procedures Procedure Description Date Indications Data Source(s) OFFICE OUTPATIENT VISIT 25 MINUTES 10/27/2021 12:00:00 AM EST [facility] ([facility] CT ABDOMEN & PELVIS W/O CONTRAST MATERIAL CT ABD & PELVIS W/ O CONTRAST 09/27/2021 12:00:00 AM [facility] URNLS DIP STICK/TABLET REAGENT AUTO MICROSCOPY URINALYSIS AU TO W/SCOPE 09/27/2021 12:00:00 AM [facility] BLOOD COUNT COMPLETE AUTO&AUTO DIFRNTL WBC COUNT COMPLETE CB C W/AUTO DIFF WBC 09/27/2021 12:00:00 AM [facility] BILIRUBIN DIRECT BILIRUBIN DIRECT 09/27/2021 12:00:00 AM [facility] LACTATE ASSAY OF LACTIC ACID 09/27/2021 12:00:00 AM [facility] LIPASE ASSAY OF LIPASE 09/27/2021 12:00:00 AM [facility] COMPREHENSIVE METABOLIC PANEL COMPREHEN METABOLIC PANEL 12/2020 12:00:00 AM [facility] Non-covered item or service NON-COVERED ITEM OR SERVICE 12/2020 12:00:00 AM [facility] EMERGENCY DEPARTMENT VISIT HIGH/URGENT SEVERITY EMERGENCY DE PT VISIT 09/27/2021 12:00:00 AM [facility] Hospital outpatient clinic visit for assessment and ma nagement of a patient Hospital Outpatient Clinic Visit 05/05/2021 12:00:00 AM [facility] RMVL IMPACTED CERUMEN SPX 1/BOTH EARS REMOVE IMPACTED EAR WA X UNI 05/05/2021 12:00:00 AM [facility] 37920 X-RAY EXAM HIP UNI 2-3 VIEWS 04/14/2021 12:00:00 AM [facility] 88309 X-RAY EXAM CHEST 1 VIEW 04/14/2021 12:00:00 AM [facility] ECG ROUTINE ECG W/LEAST 12 LDS TRCG ONLY W/O I&R ELECTROCARD IOGRAM TRACING 04/14/2021 12:00:00 AM [facility] TROPONIN QUANTITATIVE ASSAY OF TROPONIN QUANT 04/14/2021 12:00:00 A M [facility] COLLECTION VENOUS BLOOD VENIPUNCTURE ROUTINE VENIPUNCTURE 12:00:00 AM [facility] CT HEAD/BRAIN W/O CONTRAST MATERIAL CT HEAD/BRAIN W/O DYE 12:00:00 AM [facility] ANTIBODY BORRELIA BURGDORFERI LYME DISEASE LYME DISEASE ANTI BODY 11/15/2020 12:00:00 AM [facility] MAGNESIUM ASSAY OF MAGNESIUM 11/15/2020 12:00:00 AM [facility] C-REACTIVE PROTEIN C-REACTIVE PROTEIN 11/15/2020 12:00:00 AM [facility] IV INFUSION HYDRATION INITIAL 31 MIN-1 HOUR HYDRATION IV INF USION INIT 11/15/2020 12:00:00 AM [facility] EMERGENCY DEPT VISIT HIGH SEVERITY&THREAT FUNCJ EMERGENCY DE PT VISIT 11/15/2020 12:00:00 AM [facility] Needle electromyography, each extremity, with related paraspinal areas, when performed, done with nerve conduction, amplitude and latency/velocity study; complete, five or more muscles studied, innervated by three or more nerves or four or more spinal levels (list separately in addition to the code for primary procedure). 11/01/2020 12:00:00 AM JACOB Charles ([facility] ) Needle electromyography, each extremity, with related paraspinal areas, when performed, done with nerve conduction, amplitude and latency/velocity study; complete, five or more muscles studied, innervated by three or more nerves or four or more spinal levels (list separately in addition to the code for primary procedure). 11/01/2020 12:00:00 AM [facility] ([facility] ) Nerve Conduction 11-12 Studies 11/01/2020 12:00:00 AM [facility] RODRIGUES ([facility] ) [id number] 09/28/2020 12:00:00 AM [facility] U0003 09/28/2020 12:00:00 AM [facility] Results ID Date Data Source [id number] 09/27/2021 07:11:00 PM EDT [facility] Hospital Name: EARNEST WARNER Med Rec #: [id number] [birth year] : 1935 Age/Sex: 86M Date of Service: 09/27/21 DISPOSITION SUMMARY Discharge Summary [facility] Name:Earnest Warner Emergency Department Age:86 yrs Sex:Male :1935 Arrival:09/27/2021 19:11 Departure Date09/28/2021 Departure Time04:23 Private MD:Josephine Roe Outcome: Discharge Location: Home/Self Care Condition: Good Chief Complaint: Constipation Diagnosis: Constipation, unspecified Prescriptions: Colace 100 mg Oral Capsule - take 1 tablet by ORAL route every 12 hours as needed; 60 tablet Follow up: Josephine Roe Custom Notes: Attending Physician: Amish Sandhu MD Private MD: Josephine Roe Mid Level Provider: Followup Physician: Josephine Roe Orders: Cbc With Auto Differential, COMMET, Lactic Acid, Lipase, UA., Bilirubin,Direct, Collect Urine - Clean Catch, Ct Abdo & Pelvis without Contrast, Fleets Enema, Lactulose, Urinalysis Auto w/Microscopy, Fleets Enema, Lactulose Discharge Instruction: Discharge Summary Sheet, Constipation, Adult, Medication Reconciliation Name Value Range Interpretation Code Description Data Kamryn rce(s) Supporting Document(s) ID Date Data Source [id number] 09/27/2021 07:11:00 PM EDT [facility] Name: EARNEST WARNER Med Rec #: [id number] 67 : 1935 Age/Sex: 86M Date of Service: 09/27/21 PHYSICIAN CHART Physician Documentation [facility] Name: Earnest Warner Age: 86 yrs Sex: Male : 1935 Arrival Date: 09/27/2021 Time: 19:11 Bed 8 Private MD: Josephine Roe Physician Amish Sandhu HPI: 09/28 03:57 This 86 yrs old Male presents to ER via kmu Wheelchair with complaints of Constipation. 03:57 86-year-old male with a history of recurrent constipation, kmu presents with having difficulty stooling over the past s everal days. Patient notes lower abdominal discomfort consistent with same. Has no nausea vomiting diarrhea, no melena or hematochezia, denies fevers chills sweats. Patient has no dysuria urgency frequency, does not complain of urinary retention. Historical: - Allergies: No known drug Allergies; - Home Meds: 1. finasteride 5 mg Oral tab 1 tab once daily 2. pro air inhaler 3. Iron CR 250 mg Oral cpER 4. Lasix 20 mg Oral tab 1 tab once daily 5. metoprolol succinate 25 mg Tb24 1 tab once daily 6. potassium chloride 20 mEq Oral TbTQ 1 tab once daily 7. simvastatin 20 mg Oral tab 1 tab once daily 8. omeprazole 20 mg Oral cpDR 9. Xarelto 20 mg Oral tab 1 tab once daily 10. Flomax 0.4 mg Oral cp24 1 cap once daily 11. ketoconazole 200 mg Oral tab 1 tab once daily 12. sildenafil 25 mg Oral tab 2 tabs aqs needed 13. toviaz at lunch time 8mng - PMHx: ATRIAL FIB; BPH; HTN - hypertension; Hyperlipidemia; - PSHx: heart ablation; pacemaker; - Med Reconciliation:: Green Alert: The patient's med list is complete to the best of the nurse's/provider's knowledge. Medications reviewed, completed by nurse verbally from patient/family. - Immunization history,: COVID-19 vaccine: Two dose series complete. - Advance directive: There is no existing advanced directive. Information offered. - Family History:: mother is . Father is . - Social History: Smoking status (Tobacco): Patient's tobacco-smoking history is unknown. Preferred Language: Icelandic No barriers to communication noted, The patient speaks fluent Icelandic, Speaks appropriately for age. ROS: 03:58 All other systems are negative. kmu Exam: 03:58 Constitutional: This is a well developed, well nourished kmu patient who is awake, alert, and in no acute distress. Head/Face: Normocephalic, atraumatic. Eyes: Pupils equal round and reactive to light, extra-ocular motions intact. Lids and lashes normal. Conjunctiva and sclera are non-icteric and not injected. No corneal lesions notes. Periorbital areas with no swelling, redness, or edema. Neck: Trachea midline, no thyromegaly or masses noted, and no cervical lymphadenopathy. Supple, full range of motion without nuchal rigidity. No Menin gismus. Chest/axilla: Normal chest wall appearance and motion. Nontender with no deformity. No lesions are appreciated. Cardiovascular: Regular rate and rhythm with a normal S1 and S2. No gallops, murmurs, or rubs. Normal PMI, no JVD. No pulse deficits. Respiratory: Lungs have equal breath sounds bilaterally, clear to auscultation and percussion. No rales, rhonchi or wheezes noted. No increased work of breathing, no retractions or nasal flaring. 03:58 Back: Full range of motion without hesitation or pain Skin: Warm, dry with normal turgor. Normal color with no rashes, no lesions 03:58 Neuro: Awake and alert, oriented to person, place, time, and situation. Motor sensory intact. No gross focal deficits 03:58 Abdomen/GI: Inspection: abdomen appears normal, Bowel sounds: normal, Palpation: mild abdominal tenderness, in the suprapubic area, left upper quadrant and left lower quadrant, rebound tenderness, is not appreciated. 03:58 Skin: Buttocks area of excoriation consistent with diffuse grade 1 sacral decubitus versus continued exposure to urine and fecal matter. See nursing notes . Vital Signs: 09/27 19:25 BP 152 / 84; Pulse 91; Resp 18; Temp 97.5; Pulse Ox 98% ; sj Weight 86.18 kg; Height 5 ft. 10 in. (177.80 cm); 21:58 BP 136 / 83; Pulse 87; Resp 18; Temp 97(TE); Pulse Ox 99% meb on R/A; 09/28 02:00 BP 109 / 42; Pulse 63; Resp 15; Temp 97.2; Pulse Ox 97% on th1 R/A; Pain 5/10; 04:23 BP 141 / 74; Pulse 70; Resp 16; Temp 98.1; Pulse Ox 97% ; kb2 09/27 19:25 Body Mass Index 27.26 (86.18 kg, 177.80 cm) sj MDM: 09/27 21:21 Patient medically screened. kmu 09/28 04:00 Data reviewed: vital signs, nurses notes, lab test kmu result(s), radiologic studies. ED course: Patient's laboratory examinations reviewed, no significant normalities. CT abdomen pelvis consistent with constipation, no obvious obstruction. Patient treated with oral cathartics as well as fleets enema, with repeat of both, patient states he has interval improvement, only moderate stool past per inspection. Care plan developed patient to go home with oral stool softeners, follow-up with primary care. Return for worsening. 19:47 ED course: Patient called at home. Patient had significant kmu bowel movement, feels greatly improved, very appreciative for his care. Encouraged to follow-up with primary care. 09/27 21:31 Order name: Cbc With Auto Differential; Complete Time: 22:19kmu 09/27 21:31 Order name: COMMET; Complete Time: 02:19 kmu 09/27 21:31 Order name: Lactic Acid; Complete Time: 22:19 kmu 09/27 21:31 Order name: Lipase; Complete Time: 02:19 kmu 09/27 21:31 Order name: UA.; Complete Time: 02:19 kmu 09/27 22:38 Order name: Bilirubin,Direct; Complete Time: 02:19 EDMS 09/27 21:31 Order name: Collect Urine - Clean Catch; Complete Time: kmu 22:43 09/27 21:31 Order name: Ct Abdo & Pelvis without Contrast kmu 09/27 22:51 Order name: Urinalysis Auto w/Microscopy; Complete Time: EDMS 02:19 09/28 01:16 Order name: Fleets Enema; Complete Time: 01:16 th1 Dispensed Medications: 09/27 22:54 Drug: Lactulose 15 grams [lactulose 20 gram/30 mL oral nnq solution (22.5 mL)] Route: PO; 09/28 02:43 Follow up: Response: No adverse reaction th1 02:40 Drug: Lactulose 15 grams [lactulose 20 gram/30 mL oral th1 solution (22.5 mL)] Route: PO; 03:59 Follow up: Response: No change in condition kb2 Disposition Summary: 09/28/21 03:53 Discharge Ordered Location: Home/Self Care kmu Problem: an ongoing problem kmu Symptoms: have improved kmu Condition: Good kmu Diagnosis - Constipation, unspecified kmu Followup: kmu - With: Josephine Roe - When: Tomorrow - Reason: Recheck today's complaints, Continuance of care Discharge Instructions: - Discharge Summary Sheet kmu - Constipation, Adult kmu Forms: - Medication Reconciliation kmu Prescriptions: - Colace 100 mg Oral Capsule - take 1 tablet by ORAL route every 12 hours as kmu needed; 60 tablet; Refills: 0, Product Selection Permitted Signatures: Dispatcher [employer] An Melissa RN Rolanda Montgomery RN Shikha Corona RN RN Amish Epps MD MD u [facility]Sharona Perrin RN RN [facility] RN kb2 Corrections: (The following items were deleted from the chart) 00:18 09/27 22:19 Fleets Enema+CHAIM ordered. u nnq Name Value Range Interpretation Code Description Data Kamryn rce(s) Supporting Document(s) ID Date Data Source [id number] 09/27/2021 07:11:00 PM EDT [facility] Name: EARNEST WARNER Med Rec #: [id number] 68 : 1935 Age/Sex: 86M Date of Service: 09/27/21 NURSE CHART Nurse's Notes [facility] Name: Earnest Warner Age: 86 yrs Sex: Male : 1935 Arrival Date: 09/27/2021 Time: 19:11 Bed 8 Private MD: Josephine Roe Diagnosis: Constipation, unspecified Presentation: 09/27 19:24 Transition of care: ramya mackenzie was not received from another setting of care. Presenting complaint: Patient states - I can't move my bowels. Have you travelled in the last 30 days? No. Have you had contact with an individual with a confirmed diagnosis of Ebola or COVID-19? No. 19:24 Method Of Arrival: Wheelchair 19:24 Acuity: Urgent - 3 kb2 Triage Assessment: 19:25 SEPSIS SCREEN: A Confirmed or Suspected Infection is sj Unknown, SIRS or Sepsis criteria is not present. Suicide Screening: Have you had thoughts of harming yourself or others? No, Behavioral health complaint? No. The patient appears to have some mild discomfort, The patient is cooperative. The quality of the pain is described as crampy. Historical: - Allergies: No known drug Allergies; - Home Meds: 1. finasteride 5 mg Oral tab 1 tab once daily 2. pro air inhaler 3. Iron CR 250 mg Oral cpER 4. Lasix 20 mg Oral tab 1 tab once daily 5. metoprolol succinate 25 mg Tb24 1 tab once daily 6. potassium chloride 20 mEq Oral TbTQ 1 tab once daily 7. simvastatin 20 mg Oral tab 1 tab once daily 8. omeprazole 20 mg Oral cpDR 9. Xarelto 20 mg Oral tab 1 tab once daily 10. Flomax 0.4 mg Oral cp24 1 cap once daily 11. ketoconazole 200 mg Oral tab 1 tab once daily 12. sildenafil 25 mg Oral tab 2 tabs aqs needed 13. toviaz at lunch time 8mng - PMHx: ATRIAL FIB; BPH; HTN - hypertension; Hyperlipidemia; - PSHx: heart ablation; pacemaker; - Med Reconciliation:: Green Alert: The patient's med list is complete to the best of the nurse's/provider's knowledge. Medications reviewed, completed by nurse verbally from patient/family. - Immunization history,: COVID-19 vaccine: Two dose series complet e. - Advance directive: There is no existing advanced directive. Information offered. - Family History:: mother is . Father is . - Social History: Smoking status (Tobacco): Patient's tobacco-smoking history is unknown. Preferred Language: Icelandic No barriers to communication noted, The patient speaks fluent Icelandic, Speaks appropriately for age. Screenin:54 AUDIT 1. How often do you have a drink containing alcohol? meb Never (0 points). Drug Abuse Screening Test: 1. Have you used drugs other than those required for medical reasons? No (0 points), screen is complete, no risk. Abuse screen: Denies threats or abuse. Denies injuries from another. Nutritional screening: No deficits noted. The patient uses crutches/cane to ambulate (15 points). Patient's gait is weak (10 points). The patient is a MODERATE FALL RISK (Sparrow Scale=25-45 pts). Fall prevention measures have been instituted. Side rails are up, Placed close to Nursing Station, patient is being reassessed frequently, Patient and Family have been educated on fall prevention program and strategies. Assessment: 21:53 GI: The patient reports cramping. meb 09/28 01:00 The patient appears to have no apparent distress, The th1 patient is behaving appropriately according to age, cooperative, pleasant. GI: Bowel sounds present X 4 quads. On palpation, the abdomen is soft and non tender X 4 quads. The patient reports constipation, cramping. Derm: Rash/lesions noted that is excoriated is located on gluteal cleft perianal. 01:00 fleets enema administered rectally. pt to retain enema as th1 long as he can tolerate. bedside commode in room. pt to call out if he attempts to use commode.. 02:44 pt up to bedside commode at this time. NAD noted. safety th1 maintained, call light in reach.. Vital Signs: 09/27 19:25 BP 152 / 84; Pulse 91; Resp 18; Temp 97.5; Pulse Ox 98% ; sj Weight 86.18 kg; Height 5 ft. 10 in. (177.80 cm); 21:58 BP 136 / 83; Pulse 87; Resp 18; Temp 97(TE); Pulse Ox 99% meb on R/A; 09/28 02:00 BP 109 / 42; Pulse 63; Resp 15; Temp 97.2; Pulse Ox 97% on th1 R/A; Pain 5/10; 04:23 BP 141 / 74; Pulse 70; Resp 16; Temp 98.1; Pulse Ox 97% ; kb2 09/27 19:25 Body Mass Index 27.26 (86.18 kg, 177.80 cm) ED Course: 09/27 19:11 Patient arrived in ED. sm11 19:24 Josephine Roe is Private Physician. 19:25 Triage completed. sj 19:27 Arm band placed on right wrist. Patient has correct armband sj on for positive identification. 21:20 Rolanda Strickland RN is Primary Nurse. meb 21:22 Amish Sandhu MD is Attending Physician. kmu 21:41 Radiology: The patient went to get his/her CT at 21:42. meb 21:41 Ct Abdo & Pelvis without Contrast Sent. meb 21:53 Radiology: Patient returned from CT at 21:50. meb 21:53 Labs drawn by lab staff. meb 22:43 Urine collected. Clean catch specimen. md1 22:46 Primary Nurse role handed off by Rolanda Strickland RN kl1 09/28 03:29 Mai Cote RN is Primary Nurse. kb2 03:53 Josephine Roe is Referral Physician. kmu 04:12 No procedures ordered. kb2 Administered Medications: 09/27 22:54 Drug: Lactulose 15 grams [lactulose 20 gram/30 mL oral nnq solution (22.5 mL)] Route: PO; 09/28 02:43 Follow up: Response: No adverse reaction th1 02:40 Drug: Lactulose 15 grams [lactulose 20 gram/30 mL oral th1 solution (22.5 mL)] Route: PO; 03:59 Follow up: Response: No change in condition kb2 Outcome: 09/27 22:03 Report given to Sharona CHENG akb 09/28 03:53 Discharge ordered by . kmu 04:12 Patient verbalized understanding of disposition kb2 instructions. Patient has no functional deficits. 04:12 Patient discharged to home ambulatory. 04:12 Condition: good Condition: stable Condition: improved 04:12 Discharge instructions given to patient, Patient was instructed on discharge instructions, follow up and referral plans, medication usage, The patient demonstrated understanding of instructions, Prescriptions given X 1. 04:12 Vitals are Complete in accordance with Emergency Department Policy. 04:23 Patient left the ED. kb2 Signatures: An Sanon RN RN Tesfaye Dubose RN RN kl1 Mai Cote RN RN kb2 Yareli Villanueva RN RN Rolanda Chappell RN RN meb Quicke, Natasha RN Amish Jones MD MD kmu Mizener, Samantha, Reg Reg sm11 [facility] RN RN th1 Corrections: (The following items were deleted from the chart) 09/27 20:42 19:24 Acuity: Semi- Urgent - 4 [facility] Name Value Range Interpretation Code Description Data [facility] rce(s) Supporting Document(s) ID Date Data Source [id number] 09/27/2021 10:52:00 PM EDT [facility] 3 hour post Lactic if elevated? Y 3 hour post Lactic if elevated? Y Name Value Range Interpretation Code Description Data [facility] rce(s) Supporting Document(s) Color,Urine Yellow Normal (applies to non-numeric resu lts) [facility] Clarity,Urine Clear Normal (applies to non-numeric re sults) [facility] Specific [place],Urine 1.001-1.030 Normal (applies to non- numeric results) [facility] PH,Urine 5.0-8.0 Normal (applies to non-numeric resul ts) [facility] Protein,Urine Negative [facility] Glucose,Urine (UA) Negative Normal (applies to non-numer ic results) [facility] Ketones,Urine Negative [facility] Blood,Urine Negative Normal (applies to non-numeric resu lts) [facility] Bilirubin,Urine Negative Normal (applies to non-numeric results) [facility] Urobilinogen,Urine Norm 0.2-1 Normal (applies to non-numer ic results) [facility] Leukocyte Esterase,Urine Negative Normal (applies to non -numeric results) [facility] Nitrite,Urine Negative Normal (applies to non-numeric re sults) [facility] ID Date Data Source [id number] 09/27/2021 10:52:00 PM EDT [facility] 3 hour post Lactic if elevated? Y 3 hour post Lactic if elevated? Y Name Value Range Interpretation Code Description Data Kamryn rce(s) Supporting Document(s) RBC,Auto Urine 0-2 Normal (applies to non-numeric r esults) [facility] WBC Urine Auto 0-2 Normal (applies to non-numeric r esults) [facility] Casts,Hyaline,Urine Auto 0-2 Normal (applies to non -numeric results) [facility] Bacteria Urine Auto None Seen Normal (applies to non-nume lazaro results) [facility] Epithelial Cell Ur Auto None-Few Normal (applies to non- numeric results) [facility] ID Date Data Source [id number] 09/27/2021 11:57:00 PM EDT [facility] 3 hour post Lactic if elevated? Y 3 hour post Lactic if elevated? Y 3 hour post Lactic if elevated? Y Name Value Range Interpretation Code Description Data Kamryn rce(s) Supporting Document(s) Bilirubin,Direct 0.0-0.3 Above high normal Health system ID Date Data Source [id number] 09/27/2021 11:57:00 PM EDT [facility] 3 hour post Lactic if elevated? Y 3 hour post Lactic if elevated? Y 3 hour post Lactic if elevated? Y Name Value Range Interpretation Code Description Data Kamryn rce(s) Supporting Document(s) Sodium 133 mmol/L 137-145 Below low normal [facility] Potassium 3.5-5.1 Normal (applies to non-numeric resul ts) [facility] Chloride 100 mmol/L 98-112 Normal (applies to non-numeric resul ts) [facility] Carbon Dioxide CO2 22.0-33.0 Normal (applies to non-numer ic results) [facility] Anion Gap 4.0-11.0 Normal (applies to non-numeric resul ts) [facility] BUN 19 mg/dL 9-20 Normal (applies to non-numeric resul ts) [facility] Creatinine 0.80-1.50 Normal (applies to non-numeric resul ts) [facility] GFR 65 mL/min >60 Normal (applies to non-numeric resul ts) [facility] Result based on MDRD formula. Glucose Level 91 mg/dL 74-99 Normal (applies to non-numeric re sults) [facility] The reference range is only applicable w hen fasting. Calcium-Uncorrected 8.4-10.2 Normal (applies to non-nume lazaro results) [facility] Corrected Calcium 8.4-10.2 Normal (applies to non-numeri c results) [facility] Bilirubin,Total 0.2-1.3 Above high normal [facility] SGOT(AST) 41 U/L 17-59 Normal (applies to non-numeric resul ts) [facility] SGPT(ALT) 39 U/L 21-72 Normal (applies to non-numeric resul ts) [facility] Alkaline Phosphatase 101 U/L 38-126 Normal (applies to non-num gisell results) [facility] can increase Alkaline Phosp le vels up to 2 times the normal adult value. Normal values for children and adolescents are 2 to 3 times the normal adult value. Total Protein 6.3-8.2 Normal (applies to non-numeric re sults) [facility] Albumin 3.5-5.0 Below low normal [facility] ID Date Data Source [id number] 09/27/2021 11:57:00 PM EDT [facility] 3 hour post Lactic if elevated? Y 3 hour post Lactic if elevated? Y 3 hour post Lactic if elevated? Y Name Value Range Interpretation Code Description Data Kamryn rce(s) Supporting Document(s) Lipase 49 U/L 73-393 Below low normal [facility] ID Date Data Source [id number] 09/27/2021 10:09:00 PM EDT [facility] Name Value Range Interpretation Code Description Data Kamryn rce(s) Supporting Document(s) White Blood Count 4.8-10.8 Above high normal [facility] Red Blood Count 4.35-6.08 Below low normal [facility] Hemoglobin 13.0-17.5 Normal (applies to non-numeric resul ts) [facility] Hematocrit 37.7-51.0 Normal (applies to non-numeric resul ts) [facility] Mean Corpuscular Volume 80-94 Normal (applies to non- numeric results) [facility] Mean Corpuscular Hemoglobin 27.0-33.0 Normal (appli es to non-numeric results) [facility] Mean Corpuscular HGB Conc 32.0-36.0 Normal (applies to no n-numeric results) [facility] Red Cell Distribution Width 11.5-14.5 Normal (appli es to non-numeric results) [facility] Platelet Count 233 X10 3/uL 130-450 Normal (applies to non-numeric results) [facility] Mean Platelet Volume 9.6-13.1 Normal (applies to non-num gisell results) [facility] Imm Grans% (AUTO) 0 % 0-2 Normal (applies to non-numeri c results) [facility] Neutrophils % (AUTO) 84 % 40-75 Above high normal [facility] Lymphocytes % (AUTO) 9 % 21-46 Below low normal [facility] Monocytes % (AUTO) 7 % 5-12 Normal (applies to non-numer ic results) [facility] Eosinophils % (AUTO) 0 % 1-5 Below low normal [facility] Basophils % (AUTO) 0 % 0-1 Normal (applies to non-numer ic results) [facility] Imm Grans# (AUTO) 0.0-0.5 Normal (applies to non-numeri c results) [facility] Neutrophils # (AUTO) 1.5-8.1 Above high normal [facility] Lymphocytes # (AUTO) 1.0-3.1 Normal (applies to non-num gisell results) [facility] Monocytes # (AUTO) 0.2-1.3 Normal (applies to non-numer ic results) [facility] Eosinophils# (AUTO) 0.0-0.5 Normal (applies to non-nume lazaro results) [facility] Basophils # (AUTO) 0.0-0.1 Normal (applies to non-numer ic results) [facility] ID Date Data Source [id number] 09/27/2021 10:06:00 PM EDT [facility] 3 hour post Lactic if elevated? Y Name Value Range Interpretation Code Description Data Kamryn rce(s) Supporting Document(s) Lactic Acid 0.4-2.0 Normal (applies to non-numeric resu lts) [facility] ID Date Data Source [id number] 09/28/2021 01:34:00 PM EDT [facility] Name: EARNEST WARNER : 1935 A ge/Sex: 86M Ordering Provider: Amish Sandhu MD Med Rec #: [id number] Reg Status: DEP ER Room #: Date of Service: 09/27/21 Report Number: [id number] cc:Josephine Roe IV, [facility] Send Report To: [id number] CT/CT Abdomen & Pelvis No Contras Reason for exam: ABDOMINAL PAIN FINDINGS: The chest space demonstrates mild scarring and atelectasis in the lung bases.. Normal noncontrast CT appearance of the liver, spleen, pancreas, adrenal glands,and kidneys. Multiple gallstones are noted. No gallbladder wall thickening or biliary duct dilatation. There is a large amount of stool in the colon and rectum. The stool in the ascending colon is liquid is consistency. There is moderate diverticulosis without evidence of diverticulitis. The pelvic organs and bladder are normal. No acute osseous abnormality. No lymphadenopathy. IMPRESSION: Large amount of stool in the colon and rectum. There is no acute intraabdominal process noted. There is moderate diverticulosis without diverticulitis. C holelithiasis without evidence of cholecystitis. While performing the above CT exam, the following dose reduction techniques wereused: *Automated exposure control *Adjustment of the mA and/or kV according to patient size *Use of iterative reconstruction technique CT Dose in mSv: 7.208 Contrast Agent in ml: Method of Administration: REPORT SIGNATURE ON FILE Reported By: Zackery Perez MD Electronically signed by: Zackery Perez MD 09/29/21 1123 Dictation Date/Time: 09/27/21 2200 Transcribed Date/Time: 09/28/21 1334 [employer]: ARSENIO Name Value Range Interpretation Code Description Data Kamryn rce(s) Supporting Document(s) ID Date Data Source [id number] 09/27/2021 03:58:00 PM EDT [facility]) Name Value Range Interpretation Code Description Data Kamryn rce(s) Supporting Document(s) Aspartate aminotransferase [Enzymatic activity/volume] in Serum or Plasma 41 [facility] Alanine aminotransferase [Enzymatic activity/volume] in Serum or Pl asma 39 [facility] ([facility]) Total Bilirubin 1.5 [facility]) Albumin 3.4 [facility] Alk Phos 101 [facility] A/G Ratio Laboratory test result [facility]) Total Protein 7.1 [facility]) ID Date Data Source [id number] 09/27/2021 03:58:00 PM EDT [facility] Name Value Range Interpretation Code Description Data Kamryn rce(s) Supporting Document(s) Glucose 91 [facility] Blood Urea Nitrogen 19 [facility] Creatinine 1.07 [facility]) Potassium 4.3 [facility] Chloride 100 [facility] [place] Sodium 133 [facility] [place] Carbon Dioxide 26.0 [facility]) Calcium 9.2 [facility] Glomerular filtration rate/1.73 sq M.pre dicted [Volume Rate/Area] in Serum or Plasma by Creatinine-based formula (MDRD) 65 [facility] ([facility]) ID Date Data Source [id number] 09/27/2021 03:58:00 PM EDT [facility] Name Value Range Interpretation Code Description Data Kamryn rce(s) Supporting Document(s) Lipoprotein lipase [Enzymatic activity/volume] in Serum or Plasma 49 [facility] ([facility]) Bilirubin.conjugated [Mass/volume] in Serum or Plasma 0.5 [facility] ([facility]) ID Date Data Source [id number] 09/27/2021 03:58:00 PM EDT [facility] Name Value Range Interpretation Code Description Data Kamryn rce(s) Supporting Document(s) Red Blood Count 4.32 [facility]) White Blood Count 12.2 [facility]) Platelets 233 [facility] Hemoglobin 13.4 [facility] ([facility]) Hematocrit 38.6 [facility] ([facility]) ID Date Data Source [id number] 04/14/2021 03:59:00 PM EDT [facility] Name: EARNEST WARNER Med Rec #: [id number] 67 : 1935 Age/Sex: 86M Date of Service: 04/14/21 DISPOSITION SUMMARY Discharge Summary [facility] Name:Earnest Warner Emergency Department Age:86 yrs Sex:Male :1935 Arrival:04/14/2021 15:59 Departure Date04/14/2021 Departure Time18:09 Private MD:Josephine Ordaz Outcome: Discharge Location: Home/Self Care Condition: Good Chief Complaint: Hip Pain, High Blood Pressure, Chest Pressure Diagnosis: Atypical Chest Pain, Pain in right hip Prescriptions: Follow up: Josephine Ordaz Custom Notes: <span>You may take Tylenol [id number] as needed for pain in the left hip</span><span>.</span><span> Your work-up in the emergency department was reassuring. Follow-up with your primary care provider within the next few days to recheck todays complaints. 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 Return back to the emergency department for any new or worsening symptoms.</span> Attending Physician: Isiah Elkins MD Private MD: Josephine Ordaz Mid Level Provider: Lizette Munoz PA Followup Physician: Josephine Ordaz Orders: Cbc With Auto Differential, COMMET, Cardiology EKG Interpretation - Choose Reason for Test, Chest Xray - portable, Troponin I, Hip Rt - Xray, Emergency Room EKG Order - Use EKG Work-Up /Quick Select Discharge Instruction: Discharge Summary Sheet, Nonspecific Chest Pain, Adult, Hmhr-co-Bsku, Medication Reconciliation Name Value Range Interpretation Code Description Data Kamryn rce(s) Supporting Document(s) ID Date Data Source [id number] 04/14/2021 03:59:00 PM EDT [facility] Name: EARNEST WARNER [facility] Rec #: [id number] 68 : 1935 Age/Sex: 86M Date of Service: 04/14/21 PHYSICIAN CHART Physician Documentation [facility] Name: Earnest Warner Age: 86 yrs Sex: Male : 1935 Arrival Date: 04/14/2021 Time: 15:59 Bed 1 Private MD: Josephine Ordaz ED Physician Isiah Elkins Disposition: 04/14 17:51 Attestation: I discussed the plan of care with [facility] Practice Provider and agree with what they have documented. I have reviewed relevant laboratory values and/or imaging studies. I have reviewed and agree with the nursing records. HPI: 17:04 This 86 yrs old Male presents to ER via Walk-In mmo with complaints of Hip Pain, High Blood Pressure, Chest Pressure. 17:04 The patient is an 86-year-old male with a past medical mmo history of atrial fibrillation currently anticoagulated on Xarelto, hypertension, hyperlipidemia who presents today for complaints of chest pain that has been ongoing for the past 6 months, right hip pain after a fall injury 5 days ago, concerned about his blood pressure. The patient states the chest pain feels like a tingling sensation across his chest. 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 The patient does have a pacemaker. He reports some shortness of breath however states that this is chronic. He was taken off of his diuretic medication by his urologist, is unable to tell me why. Chest pain does not worsen with exertion. He also reports pain in the right hip after a fall injury 5 days ago. He states that he lost his balance and fell into a cart hitting the outer aspect of his right hip. He did not fall to the ground and, did not hit his head, did not lose consciousness. He states that he is able to ambulate however he does feel the pain into his right hip. He also states he has recorded a few blood pressures at home which have been elevated.. Historical: - Allergies: No known drug Allergies; - Home Meds: 1. omeprazole 20 mg Oral cpDR 2. Fish Oil Oral 3. Vitamin B-12 Unknown Oral daily 4. potassium chloride 20 mEq Oral TbTQ 1 tab once daily 5. Xarelto 20 mg Oral tab 1 tab once daily 6. metoprolol succinate 25 mg Tb24 1 tab once daily 7. finasteride 5 mg Oral tab 1 tab once daily 8. Flomax 0.4 mg Oral cp24 1 cap once daily 9. Iron CR 250 mg Oral cpER 10. simvastatin 20 mg Oral tab 1 tab once daily 11. toviaz at lunch time Unknown - PMHx: ATRIAL FIB; BPH; HTN - hypertension; Hyperlipidemia; - PSHx: heart ablation; pacemaker; - Med Reconciliation:: Yellow Alert: The patient's home medication list is partly complete. However, additional information is required to complete list. Medications reviewed, completed by nurse using patient's med list. - Immunization history,: Flu vaccine is not up to date. It has been more than one year since last vaccine. COVID-19 vaccine: Two dose series complete. - Advance directive: Yes, Patient's health proxy is . - Family History:: mother : unknown medical history. Father : unknown medical history. - Social History: Smoking status (Tobacco): Patient states he/she has never smoked tobacco. Preferred Language: Icelandic. ROS: 17:24 Cardiovascular: Positive for chest pain. MS/extremity: mmo Positive for pain, of the right hip. All other systems are negative. Exam: 17:25 Constitutional: This is a well developed, well nourished mmo patient who is awake, alert, and in no acute distress. Head/Face: Normocephalic, atraumatic. 17:25 Respiratory: Lungs have equal breath sounds bilaterally, clear to auscultation and percussion. No rales, rhonchi or wheezes noted. Abdomen/GI: Soft, non-tender, with normal bowel sounds. No distension or tympany. No guarding or rebound. No evidence of tenderness throughout. Back: No spinal tenderness. No costovertebral tenderness. Full range of motion. Skin: Warm, dry with normal turgor. Normal color with no rashes, no lesions, and no evidence of cellulitis. MS/ Extremity: Pulses equal, no cyanosis. Neurovascular intact. Full, normal range of motion. Neuro: Awake and alert, GCS 15, oriented to person, place, time, and situation. Normal gait. Psych: Behavior, mood, and affect are within normal limits. 17:25 Cardiovascular: Rate: normal, Rhythm: irregularly irregular. Vital Signs: 16:24 BP 155 / 84; Pulse 101; Resp 18; Temp 98.7; Pulse Ox 99% on edv R/A; Weight 90.72 kg; Height 5 ft. 10 in. (177.80 cm); 16:45 BP 139 / 95; Pulse 82; Resp 24; Pulse Ox 96% ; kb2 18:08 BP 158 / 98; Pulse 81; Resp 22; Temp 98.1; Pulse Ox 97% ; kb2 16:24 Body Mass Index 28.70 (90.72 kg, 177.80 cm) edv MDM: 16:31 Patient medically screened. o 17:03 ECG:. ED course: CXR - Gilbert daley Dr. Brian // Radiologist, [facility] R - 04/14/2021 5:02:05 PM No acute disease . 17:21 ED course: Right hip xray - Gilbert daley Dr. Brian // [facility] Radiologist, R - 04/14/2021 5:04:17 PM Negative right hip. No fracture or dislocation. . 19:07 Case presented to: Isiah Elkins MD. Data reviewed: [facility] vital signs, nurses notes, lab test result(s), EKG, radiologic studies. ED course: The patient is an 86-year-old male with past medical history of atrial fibrillation anticoagulated on Xarelto, hypertension, hyperlipidemia who presents today for complaints of 6 months of chest pain, right hip pain after an injury that occurred 5 days ago. X-ray of the right hip negative for fracture, the patient was ambulatory on the hip. EKG showed a irregularly irregular rhythm at a rate of 85 bpm, pacemaker noted. X-ray negative for acute disease. Lab work unremarkable. 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 Advised to take Tylenol [id number]-[id number] as needed for pain control of his right hip. Patient and his verbalized understanding with this plan. He was stable here in the emergency department with vital signs blood pressure 138/98, pulse in the 80s and irregular, respirations 22, afebrile at 98.1, oxygen saturation 97% on room air. Advised to return back for new or worsening symptoms.. 05/20 16:45 Order name: Cbc With Auto Differential; Complete Time: 17:34mmo 04/14 17:34 Interpretation: WBC 9.5; RBC 4.35; HGB 13.3; HCT 38.3; PLT mmo 256. 04/14 16:45 Order name: COMMET; Complete Time: 17:42 mmo 04/14 16:25 Order name: Cardiology EKG Interpretation - Choose Reason edv for Test 04/14 16:45 Order name: Chest Xray - portable mmo 04/14 16:45 Order name: Troponin I; Complete Time: 17:42 mmo 04/14 17:43 Interpretation: TROP I < 0.045. mmo 04/14 16:45 Order name: Hip Rt - Xray mmo 04/14 16:25 Order name: Emergency Room EKG Order - Use EKG Work-Up edv /Quick Select; Complete Time: 16:38 Dispensed Medications: No medications were administered EC:03 Rate is 85 beats/min. Rhythm is irregularly irregular. QRS mmo [place] is Normal. QRS interval is prolonged at 139 msec. QT interval is normal at 380 msec. No Q waves. T waves are Normal. No ST changes noted. Disposition Summary: 04/14/21 17:51 Discharge Ordered Location: Home/Self Care mmo Condition: Good mmo Diagnosis - Atypical Chest Pain mmo - Pain in right hip mmo Followup: mmo - With: Josephine Ordaz - When: 2 - 3 days - Reason: Recheck today's complaints Discharge Instructions: - Discharge Summary Sheet mmo - Nonspecific Chest Pain, Adult, [id number] mmo Forms: - Medication Reconciliation mmo Signatures: Dispatcher [employer] Salvador Monzon RN RN Isiah Tanner MD MD jam2 Mai Cote GN GN kb2 Lizette Munoz PA PA mmo Name Value Range Interpretation Code Description Data Kamryn rce(s) Supporting Document(s) ID Date Data Source [id number] 04/14/2021 03:59:00 PM EDT [facility] Name: EARNEST WARNER [facility] Rec #: [id number] [birth year] : 1935 Age/Sex: 86M Date of Service: 04/14/21 NURSE CHART Nurse's Notes [facility] Name: Earnest Warner Age: 86 yrs Sex: Male : 1935 Arrival Date: 04/14/2021 Time: 15:59 Bed 1 Private MD: Josephine Ordaz Diagnosis: Atypical Chest Pain;Pain in right hip Presentation: 04/14 16:22 Transition of care: patient was not received from another edv setting of care. Presenting complaint: Patient states - Fall x5 d ago. Fall into cart and had pain to RT hip. "I;m worried about my high pressure". Have you travelled in the last 30 days? No. Have you had contact with an individual with a confirmed diagnosis of Ebola or COVID-19? No. 16:22 Method Of Arrival: Walk-In edv 16:22 Acuity: Urgent - 3 edv Triage Assessment: 16:23 Suicide Screening: Have you had thoughts of harming edv yourself or others? No. The patient appears to have no apparent distress, The patient is behaving appropriately according to age, cooperative. The patient complains of pain in anterior aspect of right upper chest, anterior aspect of left upper chest and mid-sternal area. The patient states the pain began 1months ago. The quality of the pain is described as aching. 18:08 SEPSIS SCREEN: A Confirmed or Suspected Infection is kb2 Unknown, SIRS or Sepsis criteria is n ot present. Historical: - Allergies: No known drug Allergies; - Home Meds: 1. omeprazole 20 mg Oral cpDR 2. Fish Oil Oral 3. Vitamin B-12 Unknown Oral daily 4. potassium chloride 20 mEq Oral TbTQ 1 tab once daily 5. Xarelto 20 mg Oral tab 1 tab once daily 6. metoprolol succinate 25 mg Tb24 1 tab once daily 7. finasteride 5 mg Oral tab 1 tab once daily 8. Flomax 0.4 mg Oral cp24 1 cap once daily 9. Iron CR 250 mg Oral cpER 10. simvastatin 20 mg Oral tab 1 tab once daily 11. toviaz at lunch time Unknown - PMHx: ATRIAL FIB; BPH; HTN - hypertension; Hyperlipidemia; - PSHx: heart ablation; pacemaker; - Med Reconciliation:: Yellow Alert: The patient's home medication list is partly complete. However, additional information is required to complete list. Medications reviewed, completed by nurse using patient's med list. - Immunization history,: Flu vaccine is not up to date. It has been more than one year since last vaccine. COVID-19 vaccine: Two dose series complete. - Advance directive: Yes, Patient's health proxy is . - Family History:: mother : unknown medical history. Father : unknown medical history. - Social History: S moking status (Tobacco): Patient states he/she has never smoked tobacco. Preferred Language: Icelandic. Screenin:54 AUDIT 1. How often do you have a drink containing alcohol? meb Never (0 points). Drug Abuse Screening Test: 1. Have you used drugs other than those required for medical reasons? No (0 points), screen is complete, no risk. Abuse screen: Denies threats or abuse. Denies injuries from another. Nutritional screening: No deficits noted. The patient has IV access (20 points). The patient is hooked up to a monitor (20 points). The patient is a MODERATE FALL RISK (Sparrow Scale=25-45 pts). Fall prevention measures have been instituted. Side rails are up, Placed close to Nursing Station, patient is being reassessed frequently, Family Present and informed to notify staff if they need to leave the bedside, Patient and Family have been educated on fall prevention program and strategies. Assessment: 16:46 See Triage Assessment. kb2 16:52 Cardiovascular: Heart tones are normal. Rhythm is atrial meb fibrillation Chest pain is denied. Respiratory: Airway is patent. Respiratory effort is even, unlabored, Breath sounds are clear bilaterally. Patient reports shortness of breath on exertion. Musculoskeletal: Circulation, motion, and sensation are all intact. other to right foot, old injury greater than 15 years Tenderness present in right low back. Vital Signs: 16:24 BP 155 / 84; Pulse 101; Resp 18; Temp 98.7; Pulse Ox 99% on edv R/A; Weight 90.72 kg; Height 5 ft. 10 in. (177.80 cm); 16:45 BP 139 / 95; Pulse 82; Resp 24; Pulse Ox 96% ; kb2 18:08 BP 158 / 98; Pulse 81; Resp 22; Temp 98.1; Pulse Ox 97% ; kb2 16:24 Body Mass Index 28.70 (90.72 kg, 177.80 cm) edv ED Course: 16:17 Patient arrived in ED. ch3 16:22 Josephine Ordaz is Private Physician. edv 16:23 Triage completed. edv 16:26 Rolanda Strickland, PROSPER is Primary Nurse. edv 16:26 Mai Cote GN is Primary Nurse. edv 16:29 Lizette Munoz PA is PHCP. mmo 16:30 Isiah Elkins MD is Attending Physician. mmo 16:37 An EKG was obtained and reviewed by Lizette BUI. kb2 16:38 Cardiology EKG Interpretation - Choose Reason for Test Sent.kb2 16:38 patient monitor on. Pulse on is on. NIBP on. kb2 16:41 Labs drawn by ED staff. Inserted saline lock: 20 gauge in meb right forearm and blood collected. 16:54 Radiology: a portable X-ray was completed at 16:54. meb 16:55 Chest Xray - portable Sent. meb 17:05 Hip Rt - Xray Sent. meb 17:50 Josephine Ordaz is Referral Physician. mmo 18:07 No procedures ordered. Discontinued IV intact, bleeding kb2 controlled, pressure dressing applied, No redness/swelling at site. 18:08 Arm band placed on right wrist. Patient has correct armband kb2 on for positive identification. Side rails up X 1. Administered Medications: No medications were administered Outcome: 17:51 Discharge ordered by . mmo 18:08 Patient verbalized understanding of disposition kb2 instructions. Patient has no functional deficits. Patient awake and alert. 18:08 Patient discharged to home via wheelchair. 18:08 Condition: good 18:08 Discharge instructions given to patient, No prescriptions given. 18:08 Vitals are Complete in accordance with Emergency Department Policy. 18:09 Patient left the ED. kb2 Signatures: Salvador Nagel, RN RN edv Mai Cote GN GN kb2 Rolanda Strickland, RN RN Lizette Garcia PA PA mmo Harris, Ceola ch3 Name Value Range Interpretation Code Description Data Kamryn rce(s) Supporting Document(s) ID Date Data Source [id number] 04/14/2021 05:37:00 PM EDT [facility] Name Value Range Interpretation Code Description Data Kamryn rce(s) Supporting Document(s) Troponin I 0.000-0.045 Normal (applies to non-numeric resu lts) [facility] ID Date Data Source [id number] 04/14/2021 05:35:00 PM [facility] Name Value Range Interpretation Code Description Data [facility] rce(s) Supporting Document(s) Sodium 134 mmol/L 137-145 Below low normal [facility] Potassium 3.5-5.1 Normal (applies to non-numeric resul ts) [facility] Chloride 101 mmol/L 98-112 Normal (applies to non-numeric resul ts) [facility] Carbon Dioxide CO2 22.0-33.0 Normal (applies to non-numer ic results) [facility] Anion Gap 4.0-11.0 Normal (applies to non-numeric resul ts) [facility] BUN 19 mg/dL 9-20 Normal (applies to non-numeric resul ts) [facility] Creatinine 0.80-1.50 Normal (applies to non-numeric resul ts) [facility] GFR 74 mL/min >60 Normal (applies to non-numeric resul ts) [facility] Result based on MDRD formula. Glucose Level 96 mg/dL 74-99 Normal (applies to non-numeric re sults) [facility] The reference range is only applicable w hen fasting. Calcium-Uncorrected 8.4-10.2 Normal (applies to non-nume lazaro results) [facility] Corrected Calcium 8.4-10.2 Normal (applies to non-numeri c results) [facility] Bilirubin,Total 0.2-1.3 Normal (applies to non-numeric results) [facility] SGOT(AST) 28 U/L 17-59 Normal (applies to non-numeric resul ts) [facility] SGPT(ALT) 30 U/L 21-72 Normal (applies to non-numeric resul ts) [facility] Alkaline Phosphatase 118 U/L 38-126 Normal (applies to non-num gisell results) [facility] can increase Alkaline Phosp le vels up to 2 times the normal adult value. Normal values for children and adolescents are 2 to 3 times the normal adult value. Total Protein 6.3-8.2 Normal (applies to non-numeric re sults) [facility] Albumin 3.5-5.0 Normal (applies to non-numeric resul ts) [facility] ID Date Data Source [id number] 04/14/2021 05:22:00 PM EDT [facility] Name Value Range Interpretation Code Description Data Kamryn rce(s) Supporting Document(s) White Blood Count 4.8-10.8 Normal (applies to non-numeri c results) [facility] Red Blood Count 4.35-6.08 Normal (applies to non-numeric results) [facility] Hemoglobin 13.0-17.5 Normal (applies to non-numeric resul ts) [facility] Hematocrit 37.7-51.0 Normal (applies to non-numeric resul ts) [facility] Mean Corpuscular Volume 80-94 Normal (applies to non- numeric results) [facility] Mean Corpuscular Hemoglobin 27.0-33.0 Normal (appli es to non-numeric results) [facility] Mean Corpuscular HGB Conc 32.0-36.0 Normal (applies to no n-numeric results) [facility] Red Cell Distribution Width 11.5-14.5 Normal (appli es to non-numeric results) [facility] Platelet Count 256 X10 3/uL 130-450 Normal (applies to non-numeric results) [facility] Mean Platelet Volume 9.6-13.1 Normal (applies to non-num gisell results) [facility] Imm Grans% (AUTO) 0 % 0-2 Normal (applies to non-numeri c results) [facility] Neutrophils % (AUTO) 76 % 40-75 Above high normal [facility] Lymphocytes % (AUTO) 15 % 21-46 Below low normal [facility] Monocytes % (AUTO) 8 % 5-12 Normal (applies to non-numer ic results) [facility] Eosinophils % (AUTO) 1 % 1-5 Normal (applies to non-num gisell results) [facility] Basophils % (AUTO) 0 % 0-1 Normal (applies to non-numer ic results) [facility] Imm Grans# (AUTO) 0.0-0.5 Normal (applies to non-numeri c results) [facility] Neutrophils # (AUTO) 1.5-8.1 Normal (applies to non-num gisell results) [facility] Lymphocytes # (AUTO) 1.0-3.1 Normal (applies to non-num gisell results) [facility] Monocytes # (AUTO) 0.2-1.3 Normal (applies to non-numer ic results) [facility] Eosinophils# (AUTO) 0.0-0.5 Normal (applies to non-nume lazaro results) [facility] Basophils # (AUTO) 0.0-0.1 Normal (applies to non-numer ic results) [facility] ID Date Data Source [id number] 04/15/2021 02:54:00 PM EDT [facility] Name: EARNEST WARNER : 1935 A ge/Sex: 86M Ordering Provider: RAMYA Lutz Med Rec #: [id number] Reg Status: DEP ER Room #: Date of Service: 04/14/21 Report Number: [id number] cc:Josephine Roe IV, [facility] Send Report To: [id number] XRP/XR Hip Rt 2-3 Views Reason for exam: _INJURY FINDINGS: No fracture or dislocation. No significant degenerative change. No osseous lesion. Visualized portion of the right pelvis unremarkable. IMPRESSION: Negative right hip. No fracture or dislocation. Fluoroscopy time in seconds: 0 Number of Exposures: Time Portable Image Performed: Contrast Agent in ml: Method of Administration: REPORT SIGNATURE ON FILE Reported By: Jose Hunt DO <Electronically signed by Jose Hunt DO> 04/18/21 0830 Dictation Date/Time: 04/14/21 1711 Transcribed Date/Time: 04/15/21 1454 Industrial Furnace Fabricator: SARAH Name Value Range Interpretation Code Description Data Kamryn rce(s) Supporting Document(s) ID Date Data Source [id number] 04/15/2021 02:46:00 PM EDT [facility] Name: EARNEST WARNER : 1935 A ge/Sex: 86M Ordering Provider: RAMYA Lutz Med Rec #: [id number] Reg Status: DEP ER Room #: Date of Service: 04/14/21 Report Number: [id number] cc:Josephine Roe IV, [facility] Send Report To: [id number] XRP/XR Chest Xray Portable Reason for exam: CHEST PAIN FINDINGS: The cardiac and mediastinal silhouettes appear normal and the lungs are clear. The bones and soft tissues are normal. The upper abdomen is unremarkable. IMPRESSION: No acute disease identifiable. Fluoroscopy time in seconds: Number of Exposures: Time Portable Image Performed: 1658 Contrast Agent in ml: Method of Administration: REPORT SIGNATURE ON FILE Reported By: Jose Hunt DO <Electronically signed by Jose Hunt DO> 04/18/21 0829 Dictation Date/Time: 04/14/21 1711 Transcribed Date/Time: 04/15/21 1446 Industrial Furnace Fabricator: SARAH Name Value Range Interpretation Code Description Data Kamryn rce(s) Supporting Document(s) ID Date Data Source [id number] 04/15/2021 01:56:00 PM EDT [facility] Name: EARNEST WARNER : 1935 A ge/Sex: 86M Ordering Provider: Isiah Elkins MD Med Rec #: [id number] Reg Status:[facility] ER Room #: Date of Service: 04/14/21 Report Number: [id number] cc: Josephine Roe IV, [facility]; Isiah Elkins MD Send Report To: Reason for exam: Chest Pain ATRIAL FIBRILLATION RIGHT BUNDLE BRANCH BLOCK Demand ventricular pacemaker ABNORMAL ECG Physician Computer Installation Engineer: Kourtney Houston M.D. ECG HEART RATE: 85 /min ECG RR INTERVAL: 700 ms ECG P DURATION: ms ECG QRS DURATION: 139 ms ECG DE INTERVAL: ms ECG QT INTERVAL: 380 ms ECG QTC INTERVAL: 423 ms Q-T dispersion: ms ECG P AXIS: deg ECG QRS AXIS: 1 deg ECG T AXIS: 3 deg REPORT SIGNATURE ON FILE 04/15/21 1356 Reported By: Kourtney Houston MD <<Signature on File>> Exam Date/Time: 04/14/21 1638 Order #: [id number] Dictation Date/Time: 04/15/21 135 Transcribed Date/Time: 04/15/211355 Industrial Furnace Fabricator: TONY Name Value Range Interpretation Code Description Data Kamryn rce(s) Supporting Document(s) ID Date Data Source [id number] 11/15/2020 11:06:00 AM EST [facility] Hospital Name: EARNEST WARNER [facility] Rec #: [id number] 67 : 1935 Age/Sex: 85M Date of Service: 11/15/20 DISPOSITION SUMMARY Discharge Summary [facility] Name:Earnest Warner Emergency Department Age:85 yrs Sex:Male :1935 Arrival:11/15/2020 11:06 Departure Date11/15/2020 Departure Time15:00 Private MD:Josephine Ordaz Outcome: Discharge Location: Home/Self Care Condition: Good Chief Complaint: Altered Mental Status Diagnosis: Near Syncope - related to extra dose of Viagra Prescriptions: Follow up: Josephine Ordaz Custom Notes: Earnest
<span>I think that your symptoms are likely related to the extra dose of Advair that you took today.</span><span> Your blood pressure was low when you came into the emergency department</span><span>. It is now improved.</span><span> I would discuss the Viagra with your</span><span> primary care provider before taking any more of this medication.</span><span> If you have any worsening of symptoms or any</span><span> new problems return to the ER.</span> Attending Physician: Isiah Elkins MD Private MD: Josephine Ordaz Mid Level Provider: Stoney Alejo RNP Followup Physician: Josephine Ordaz Orders: Cbc With Auto Differential, COMMET, C-Reactive Protein,Wide Range, Magnesium, Lyme IgG/IgM Ab profile (serum), UA., Collect Urine - Clean Catch, Emergency Room EKG Order - Use EKG Work-Up /Quick Select, Cardiology EKG Interpretation - Choose Reason for Test, Ct Head No Contrast, NS 0.9% Discharge Instruction: Discharge Summary Sheet, Near-Syncope, [id number], Medication Reconciliation Name Value Range Interpretation Code Description Data Kamryn rce(s) Supporting Document(s) ID Date Data Source [id number] 11/15/2020 11:06:00 AM [facility] Name: EARNEST WARNER [facility] Rec #: [id number] 67 : 1935 Age/Sex: 85M Date of Service: 11/15/20 PHYSICIAN CHART Physician Documentation [facility] Name: Earnest Warner Age: 85 yrs Sex: Male : 1935 Arrival Date: 11/15/2020 Time: 11:06 Bed 14 Private MD: Josephine Ordaz ED Physician Isiah Elkins Disposition: 11/15 13:23 Critical Care: not applicable. [facility] 13:53 Attestation: I was present, saw, evaluated and participated jam2 in the care with the Advanced Practice Provider. HPI: 11:28 This 85 yrs old Male presents to ER via [place] [address] Rescue with complaints of Altered Mental Status. 11:28 Patient is an 85-year-old male presents via rescue squad to [facility] the emergency department today with complaints of altered mental status and facial drooping. 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 The patient is alert and oriented to his surroundings but is unable to answer some specific questions. He is able to answer more broad questions. According to rescue squad personnel patient did accidentally take an extra Viagra. He then reports that approximately 1 hour later began feeling weak and not as well. He denies fever, chills, nausea, vomiting, recent illness. Denies any other recent symptoms. Does report that he was feeling well this morning prior to this incident.. Historical: - Allergies: No known drug Allergies; - Home Meds: 1. metoprolol succinate 25 mg Tb24 1 tab once daily 2. omeprazole 20 mg Oral cpDR 3. Xarelto 20 mg Oral tab 1 tab once daily 4. Flomax 0.4 mg Oral cp24 1 cap once daily 5. simvastatin 20 mg Oral tab 1 tab once daily 6. potassium chloride 20 mEq Oral TbTQ 1 tab once daily 7. Iron CR 250 mg Oral cpER 8. Lasix 20 mg Oral tab 1 tab once daily 9. ketoconazole 200 mg Oral tab 1 tab once daily 10. sildenafil 25 mg oral tab 2 tabs aqs needed 11. pro air inhaler - PMHx: ATRIAL FIB; BPH; HTN - hypertension; Hyperlipidemia; - PSHx: heart ablation; pacemaker; - Med Reconciliation:: Yellow Alert: The patient's home medication list is partly complete. However, additional information is required to complete list. Medications reviewed, using patient's med list. - Immunization history: Flu vaccine is up to date. 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 - Family History:: mother is . Father is . - Social History: Smoking status (Tobacco): Patient states they are a former tobacco smoker, quit smoking quit 30 yrs ago ago. Preferred Language: Icelandic. - The history of the events were obtained from: the patient. ROS: 11:32 Constitutional: See HPI. Eyes: Negative for vision loss, jja1 visual disturbance. Neck: Negative for pain at rest. Cardiovascular: Negative for chest pain. Respiratory: Negative for cough, shortness of breath. Abdomen/GI: Negative for abdominal pain, nausea, vomiting. Skin: Negative for rash. Neuro: See HPI. All other systems are negative. Exam: 11:33 Constitutional: The patient appears alert, appears to be jja1 awake. 11:33 Eyes: Pupils: equal, round, and reactive to light and accomodation, Extraocular movements: intact throughout, Visual steele: are intact. 11:33 Chest/axilla: Inspection: normal, no assymetry. 11:33 Cardiovascular: Rate: normal, Rhythm: regular, Pulses: Pulses are 2+ in right radial artery, right dorsalis pedis artery, left radial artery and left dorsalis pedis artery. Heart sounds: normal, normal S1and S2. 11:33 Respiratory: the patient does not display signs of respiratory distress, Respirations: normal, symetrical, Breath sounds: are normal, clear throughout. 11:33 Skin: Appearance: Color: pink, Temperature: warm, Moisture: dry. 11:33 Neuro: Orientation: to person, place, situation, Cranial nerves: extraocular movements are intact, facial droop noted on left, with forehead involved. Cerebellar function: Romberg testing is negative, normal finger to nose testing, Motor: moves all fours, strength is 5/5 in all extremities, Sensation: no obvious gross deficits. Vital Signs: 11:20 BP 105 / 64; Pulse 84; Resp 20; Temp 97(TE); Pulse Ox 97% sm6 on R/A; Weight 90.72 kg; Height 5 ft. 1 in. (154.94 cm); Pain 0/10; 12:09 BP 90 / 55 RA Supine (auto/reg); Pulse 72; Resp 17 S; Temp kms 97.5(TE); Pulse Ox 95% on R/A; 13:18 BP 114 / 66; Pulse 70; Resp 20; Pulse Ox 96% on R/A; sm6 14:09 BP 125 / 77; Pulse 70; Resp 19; Pulse Ox 99% on R/A; sm6 14:58 BP 120 / 75; Pulse 70; Resp 18; Temp 97.2(TE); Pulse Ox 96% sm6 on R/A; 11:20 Body Mass Index 37.79 (90.72 kg, 154.94 cm) sm6 MDM: 11:08 Patient medically screened. jja1 11:37 Case presented to: Dr. Isiah Elkins. Data reviewed: j1 vital signs, nurses notes, old medical records. 13:26 ED course: After reviewing patient's story as well as j1 information obtained from the family, it sounds like patient had a low blood pressure at home as well as some mild altered mental status and near syncope. He did report that he took an extra Viagra today by accident. His is also reporting ongoing mild weakness. I have discussed with the that it might be a good idea to discuss the Viagra with the primary care provider, as it may be causing his symptoms. His laboratory studies are grossly unremarkable. A CT scan of his head is negative. Will discharge home. Follow-up with primary in 2 to 3 days. Return for any worsening of symptoms. 11/15 11:20 Order name: Cbc With Auto Differential; Complete Time: 12:18jja11/15 11:20 Order name: COMMET; Complete Time: 12:18 jja1 11/15 11:20 Order name: C-Reactive Protein,Wide Range; Complete Time: jja 12:18 11/15 11:20 Order name: Magnesium; Complete Time: 12:18 jja1 11/15 11:20 Order name: Lyme IgG/IgM Ab profile (serum) j11/15 11:20 Order name: Collect Urine - Clean Catch jja1 11/15 11:22 Order name: Emergency Room EKG Order - Use EKG Work- Up j /Quick Select; Complete Time: 11:27 11/15 11:22 Order name: Cardiology EKG Interpretation - Choose Reason j for Test 11/15 11:22 Order name: Ct Head No Contrast Dispensed Medications: 13:18 Drug: NS 0.9% 1000 ml [sodium chloride 0.9 % intravenous sm6 solution] Route: IV; Rate: 999 mL/hr; Site: left antecubital; 14:10 Follow up: IV Status: Completed infusion sm6 Disposition Summary: 11/15/20 13:24 Discharge Ordered Location: Home/Self Care j1 Condition: Good j1 Diagnosis - Near Syncope - related to extra dose of Viagra j1 Followup: jja1 - With: Emergency Department - When: As needed - Reason: Worsening of condition Followup: jja1 - With: Willburn, Josephine - When: 2 - 3 days - Reason: Continuance of care Discharge Instructions: - Discharge Summary Sheet jja1 - Near-Syncope, Qvkg-pn-Ageh jja1 Forms: - Medication Reconciliation j1 Signatures: Dispatcher [employer] Isiah Tavares MD MD jam2 Gladys Cano, RN RN sm6 Marcy Joe, NAZIA NA Stoney Castanon RNP [facility] jja1 Corrections: (The following items were deleted from the chart) 11:32 11:28 Patient is an 85-year-old male presents via rescue jja1 squad to the emergency department today with complaints of altered mental status and facial drooping.. jja1 Name Value Range Interpretation Code Description Data Kamryn rce(s) Supporting Document(s) ID Date Data Source [id number] 11/15/2020 11:06:00 AM EST [facility] Name: EARNEST WARNER [facility] Rec #: [id number] 67 : 1935 Age/Sex: 85M Date of Service: 11/15/20 NURSE CHART Nurse's Notes [facility] Name: Earnest Warner Age: 85 yrs Sex: Male : 1935 Arrival Date: 11/15/2020 Time: 11:06 Bed 14 Private MD: Josephine Ordaz Diagnosis: Near Syncope-related to extra dose of Viagra Presentation: 11/15 11:25 Transition of care: ramya mann was not received from another [facility] setting of care. Presenting complaint: Patient states - in his usual state of health took 2 Viagra pills this am around 0830 at 0900 altered mental status facial droop on right denies pain. Have you travelled in the last 30 days? No. Have you had contact with an individual with a confirmed diagnosis of Ebola or COVID-19? No. 11:25 Method Of Arrival: [facility] 11:25 Acuity: Emergent - 2 [facility] Triage Assessment: 11:26 SEPSIS SCREEN: A Confirmed or Suspected Infection is [facility] Unknown, their temperature is not <96.8 or >100.9, their heart rate is not >90, their RR is not >20, it is unknown if their WBC is <4 or > 12, the patient has new or unexplained altered mental status. Two or more SIRS or Sepsis criteria is present, provider notified: Stoney YUEN. Suicide Screening: Have you had thoughts of harming yourself or others? No. The patient appears to have no apparent distress, The patient is cooperative. The patient denies having pain. Neuro: Deficit is on patient's dominant side. Level of Consciousness is awake, confused, Patient is oriented to person. Strength is normal in all extremities. Unable to assess gait. Speech is normal, Facial droop on right side noted. 11:27 Cardiovascular: Rhythm is paced. [facility] Historical: - Allergies: No known drug Allergies; - Home Meds: 1. metoprolol succinate 25 mg Tb24 1 tab once daily 2. omeprazole 20 mg Oral cpDR 3. Xarelto 20 mg Oral tab 1 tab once daily 4. Flomax 0.4 mg Oral cp24 1 cap once daily 5. simvastatin 20 mg Oral tab 1 tab once daily 6. potassium chloride 20 mEq Oral TbTQ 1 tab once daily 7. Iron CR 250 mg Oral cpER 8. Lasix 20 mg Oral tab 1 tab once daily 9. ketoconazole 200 mg Oral tab 1 tab once daily 10. sildenafil 25 mg oral tab 2 tabs aqs needed 11. pro air inhaler - PMHx: ATRIAL FIB; BPH; HTN - hypertension; Hyperlipidemia; - PSH x: heart ablation; pacemaker; - Med Reconciliation:: Yellow Alert: The patient's home medication list is partly complete. However, additional information is required to complete list. Medications reviewed, using patient's med list. - Immunization history: Flu vaccine is up to date. 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 - Family History:: mother is . Father is . - Social History: Smoking status (Tobacco): Patient states they are a former tobacco smoker, quit smoking quit 30 yrs ago ago. Preferred Language: Icelandic. - The history of the events were obtained from: the patient. Screenin:32 AUDIT 1. How often do you have a drink containing alcohol? sm6 4 or more times a week (4 points) 2. How many standard drinks containing alcohol do you have on a typical day when drinking? 1 or 2 (0 points). Drug Abuse Screening Test: 1. Have you used drugs other than those required for medical reasons? No (0 points), screen is complete, no risk. Abuse screen: Denies threats or abuse. Nutritional screening: No deficits noted. The patient is a MODERATE FALL RISK (Sparrow Scale=25-45 pts). Fall prevention measures have been instituted. Side rails are up, patient is being reassessed frequently. Vital Signs: 11:20 BP 105 / 64; Pulse 84; Resp 20; Temp 97(TE); Pulse Ox 97% sm6 on R/A; Weight 90.72 kg; Height 5 ft. 1 in. (154.94 cm); Pain 0/10; 12:09 BP 90 / 55 RA Supine (auto/reg); Pulse 72; Resp 17 S; Temp kms 97.5(TE); Pulse Ox 95% on R/A; 13:18 BP 114 / 66; Pulse 70; Resp 20; Pulse Ox 96% on R/A; sm6 14:09 BP 125 / 77; Pulse 70; Resp 19; Pulse Ox 99% on R/A; sm6 14:58 BP 120 / 75; Pulse 70; Resp 18; Temp 97.2(TE); Pulse Ox 96% sm6 on R/A; 11:20 Body Mass Index 37.79 (90.72 kg, 154.94 cm) sm6 ED Course: 11:08 Gladys Cano, PROSPER is Primary Nurse. [facility] 11:08 Patient arrived in ED. [facility] 11:08 Stoney Alejo RNP is PHCP. jja1 11:08 Isiah Elkins MD is Attending Physician. jja1 11:12 An EKG was obtained and reviewed by Stoney YUEN. kms 11:25 Josephine Ordaz is Private Physician. 6 11:26 Triage completed. 6 11:27 Cardiology EKG Interpretation - Choose Reason for Test Sent.kms 11:28 Arm band placed on left wrist. Patient has correct armband sm6 on for positive identification. Placed in gown. Bed in low position. Call light in reach. Side rails up X2. 11:32 patient monitor on. Pulse on is on. NIBP on. 6 11:33 Labs drawn by ED staff. Inserted saline lock: 18 gauge in sm6 left wrist. 11:53 Radiology: The patient went to get his/her CT at 11:53. 6 11:[address] Ct Head No Contrast Sent. 6 13:23 Josephine Ordaz is Referral Physician. jja1 14:09 Family attempt to call no answer for pt discharge. 6 14:59 No procedures ordered. Discontinued lock bleeding sm6 controlled, pressure dressing applied, No redness/swelling at site. Administered Medications: 13:18 Drug: NS 0.9% 1000 ml [sodium chloride 0.9 % intravenous sm6 solution] Route: IV; Rate: 999 mL/hr; Site: left antecubital; 14:10 Follow up: IV Status: Completed infusion sm6 Intake: 14:10 IV: 1000ml; Total: 1000ml. 6 Outcome: 13:24 Discharge ordered by . jja1 14:59 Patient verbalized understanding of disposition 6 instructions. Patient has no functional deficits. 14:59 Patient discharged to home ambulatory, with family. 14:59 Condition: stable 14:59 Discharge instructions given to patient, Patient was instructed on discharge instructions, follow up and referral plans, medication usage, The patient demonstrated understanding of instructions, medications, No prescriptions given. 14:59 Vitals are Complete in accordance with Emergency Department Policy. 15:00 Patient left the ED. 6 11/16 13:58 24 hour call back attempted, no answer meb Signatures: Gladys Cano RN RN [email or web address] Marcy Joe NA NA s Stoney Alejo RNP RNP jja1 Rolanda Strickland RN RN meb Gravlin, Neema blg Name Value Range Interpretation Code Description Data Kamryn rce(s) Supporting Document(s) ID Date Data Source [id number] 11/16/2020 08:09:00 PM [facility] Hospital Name: EARNEST WARNER : 1935 A ge/Sex: 85M Ordering Provider: Stoney Alejo IV, FNP Med Rec #: [id number] Reg Status:[facility] ER Room #: Date of Service: 11/15/20 Report Number: [id number] cc: Josephine Roe IV, [facility]; Stoney Alejo IV, CELINE Send Report To: Reason for exam: EKG ATRIAL FIBRILLATION with intermittent ELECTRONIC VENTRICULAR PACEMAKER -- RIGHT BUNDLE BRANCH BLOCK ABNORMAL ECG Physician Computer Installation Engineer: Dr. Sajan Call M.D. ECG HEART RATE: 70 /min ECG RR INTERVAL: 848 ms ECG P DURATION: ms ECG QRS DURATION: 141 ms ECG DE INTERVAL: ms ECG QT INTERVAL: 399 ms ECG QTC INTERVAL: 416 ms Q-T dispersion: ms ECG P AXIS: deg ECG QRS AXIS: -13 deg ECG T AXIS: -16 deg REPORT SIGNATURE ON FILE 11/16/202008 Reported By: Sajan Call MD <<Signature on File>> Exam Date/Time: 11/15/20 1112 Order #: [id number] Dictation Date/Time: 11/16/202008 Transcribed Date/Time: 11/16/202008 Industrial Furnace Fabricator: TONY Name Value Range Interpretation Code Description Data Kamryn rce(s) Supporting Document(s) ID Date Data Source [id number] 11/15/2020 12:36:00 PM EST [facility] Name: EARNEST WARNER : 1935 A ge/Sex: 85M Ordering Provider: Stoney Alejo IV, FNP Med Rec #: [id number] Reg Status: [facility] Room #: Date of Service: 11/15/20 Report Number: [id number] cc:Josephine Roe IV, [facility] Send Report To: [id number] CT/CT Head No Contrast Reason for exam: BELLS PALSY, AMS AT HOME Comparison: CT head dated 05/07/14. Technique: Multiplanar CT images were obtained through the head on this 64 channel spiral scanner. FINDINGS: There is mild to moderate generalized cerebral atrophy and chronic nonspecific white matter disease. There is benign calcification in the falx andin both basal ganglia. There are no other areas of abnormal attenuation. There is no sign of midline shift. The brainstem and cerebellar structures are not remarkable. The sella is empty, not incompatible with the patient's age. The visualized portions of the paranasal sinuses, orbital structures, and bones are not remarkable. IMPRESSION: Mild to moderate generalized cerebral atrophy and chronic white matter disease. No acute disease with no significant change since April 2014. While performing the above CT exam, the following dose reduction techniques wereused: *Automated exposure control *Adjustment of the mA and/or kV according to patient size *Use of iterative reconstruction technique CT Dose in mSv: 3.26 Contrast Agent in ml: Method of Administration: REPORT SIGNATURE ON FILE Reported By: Robin Tineo MD <Electronically signed by Robin Tineo MD> 11/16/20 1335 Dictation Date/Time: 11/15/20 1209 Transcribed Date/Time: 11/15/20 1236 Industrial Furnace Fabricator: BASSEM Name Value Range Interpretation Code Description Data Kamryn rce(s) Supporting Document(s) ID Date Data Source [id number] 11/15/2020 07:12:00 PM [facility] Name Value Range Interpretation Code Description Data [facility] rce(s) Supporting Document(s) Lyme IgG Ab Negative Normal (applies to non-numeric resu lts) [facility] Lyme IgM Ab Negative Normal (applies to non-numeric resu lts) [facility] Interpretation: No detectable antibodie s to B. burgdorferi detected. A negative result does not rule out the possibility of B. burgdorferi infection. Patients in early stages of infection or who have undergone antibiotic therapy may not produce measureable antibodies. If recent exposure is suspected, a second sample should be collected in 4-6 weeks. ID Date Data Source [id number] 11/15/2020 12:10:00 PM [facility] Name Value Range Interpretation Code Description Data [facility] rce(s) Supporting Document(s) Sodium 137 mmol/L 137-145 Normal (applies to non-numeric resul ts) [facility] Potassium 3.5-5.1 Normal (applies to non-numeric resul ts) [facility] Chloride 105 mmol/L 98-112 Normal (applies to non-numeric resul ts) [facility] Carbon Dioxide CO2 22.0-33.0 Normal (applies to non-numer ic results) [facility] Anion Gap 4.0-11.0 Normal (applies to non-numeric resul ts) [facility] BUN 16 mg/dL 9-20 Normal (applies to non-numeric resul ts) [facility] Creatinine 0.80-1.50 Normal (applies to non-numeric resul ts) [facility] GFR 68 mL/min >60 Normal (applies to non-numeric resul ts) [facility] Result based on MDRD formula. Glucose Level 118 mg/dL 74-99 Above high normal [facility] The reference range is only applicable w hen fasting. Calcium-Uncorrected 8.4-10.2 Normal (applies to non-nume lazaro results) [facility] Corrected Calcium 8.4-10.2 Normal (applies to non-numeri c results) [facility] Bilirubin,Total 0.2-1.3 Normal (applies to non-numeric results) [facility] SGOT(AST) 38 U/L 17-59 Normal (applies to non-numeric resul ts) [facility] SGPT(ALT) 31 U/L 21-72 Normal (applies to non-numeric resul ts) [facility] Alkaline Phosphatase 113 U/L 38-126 Normal (applies to non-num gisell results) [facility] can increase Alkaline Phosp le vels up to 2 times the normal adult value. Normal values for children and adolescents are 2 to 3 times the normal adult value. Total Protein 6.3-8.2 Normal (applies to non-numeric re sults) [facility] Albumin 3.5-5.0 Below low normal [facility] ID Date Data Source [id number] 11/15/2020 12:10:00 PM EST [facility] Name Value Range Interpretation Code Description Data Kamryn rce(s) Supporting Document(s) Magnesium 1.80-2.40 Normal (applies to non-numeric resul ts) [facility] ID Date Data Source [id number] 11/15/2020 12:10:00 PM EST [facility] Name Value Range Interpretation Code Description Data Kamryn rce(s) Supporting Document(s) C-Reactive Protein,Wide Range <3.00 Above high normal [facility] ID Date Data Source [id number] 11/15/2020 12:05:00 PM EST [facility] Name Value Range Interpretation Code Description Data Kamryn rce(s) Supporting Document(s) White Blood Count 4.8-10.8 Normal (applies to non-numeri c results) [facility] Red Blood Count 4.35-6.08 Normal (applies to non-numeric results) [facility] Hemoglobin 13.0-17.5 Normal (applies to non-numeric resul ts) [facility] Hematocrit 37.7-51.0 Normal (applies to non-numeric resul ts) [facility] Mean Corpuscular Volume 80-94 Normal (applies to non- numeric results) [facility] Mean Corpuscular Hemoglobin 27.0-33.0 Normal (appli es to non-numeric results) [facility] Mean Corpuscular HGB Conc 32.0-36.0 Normal (applies to no n-numeric results) [facility] Red Cell Distribution Width 11.5-14.5 Normal (appli es to non-numeric results) [facility] Platelet Count 236 X10 3/uL 130-450 Normal (applies to non-numeric results) [facility] Mean Platelet Volume 9.6-13.1 Normal (applies to non-num gisell results) [facility] Imm Grans% (AUTO) 0 % 0-2 Normal (applies to non-numeri c results) [facility] Neutrophils % (AUTO) 79 % 40-75 Above high normal [facility] Lymphocytes % (AUTO) 14 % 21-46 Below low normal [facility] Monocytes % (AUTO) 5 % 5-12 Normal (applies to non-numer ic results) [facility] Eosinophils % (AUTO) 1 % 1-5 Normal (applies to non-num gisell results) [facility] Basophils % (AUTO) 1 % 0-1 Normal (applies to non-numer ic results) [facility] Imm Grans# (AUTO) 0.0-0.5 Normal (applies to non-numeri c results) [facility] Neutrophils # (AUTO) 1.5-8.1 Normal (applies to non-num gisell results) [facility] Lymphocytes # (AUTO) 1.0-3.1 Normal (applies to non-num gisell results) [facility] Monocytes # (AUTO) 0.2-1.3 Normal (applies to non-numer ic results) [facility] Eosinophils# (AUTO) 0.0-0.5 Normal (applies to non-nume lazaro results) [facility] Basophils # (AUTO) 0.0-0.1 Normal (applies to non-numer ic results) [facility] ID Date Data Source [id number] 09/20/2020 02:18:00 PM EDT [facility] Name: EARNEST WARNER [facility] Rec #: [id number] 67 : 1935 Age/Sex: 85M Date of Service: 09/20/20 DISPOSITION SUMMARY Discharge Summary [facility] Name:Earnest Warner Emergency Department Age:85 yrs Sex:Male :1935 Arrival:09/20/2020 14:18 Departure Date10/05/2020 Departure Time10:40 Private MD: Outcome: Discharge Location: Home/Self Care Condition: Good Chief Complaint: Diagnosis: [employer] unavailable, see scanned chart Prescriptions: Custom Notes: Attending Physician: Isiah Elkins MD Private MD: Mid Level Provider: Orders: Discharge Instruction: Disposition Documents, Medication Reconciliation Name Value Range Interpretation Code Description Data Kamryn rce(s) Supporting Document(s) ID Date Data Source [id number] 09/20/2020 02:18:00 PM EDT [facility] Name: EARNEST WARNER Med Rec #: [id number] [birth year] : 1935 Age/Sex: 85M Date of Service: 09/20/20 PHYSICIAN CHART Chart has not been started yet Name Value Range Interpretation Code Description Data Kamryn rce(s) Supporting Document(s) ID Date Data Source [id number] 09/20/2020 02:18:00 PM EDT [facility] Hospital Name: EARNEST WARNER [facility] Rec #: [id number] 67 : 1935 Age/Sex: 85M Date of Service: 09/20/20 NURSE CHART Chart has not been started yet Name Value Range Interpretation Code Description Data Kamryn rce(s) Supporting Document(s) ID Date Data Source [id number] 10/25/2020 01:00:00 PM EST [facility] ([facility]) Name Value Range Interpretation Code Description Data Kamryn rce(s) Supporting Document(s) Creatinine [Mass/volume] in Serum or Plasma 1.100 mg/dL 0.500-1.[facility] Urea nitrogen [Mass/volume] in Serum or Plasma 20 mg/dL 7-23 [facility] ([facility]) ID Date Data Source [id number] 10/25/2020 03:03:00 PM EST [facility] Name Value Range Interpretation Code Description Data Kamryn rce(s) Supporting Document(s) CRE 1.100 mg/dL 0.500-1.300 [facility] ID Date Data Source [id number] 10/25/2020 03:03:00 PM EST [facility] Name Value Range Interpretation Code Description Data Kamryn rce(s) Supporting Document(s) BUN 20 mg/dL 7-23 [address] [facility] ID Date Data Source [id number] 11/20/2020 04:27:00 PM [facility] Name Value Range Interpretation Code Description Data Kamryn rce(s) Supporting Document(s) SARS-CoV-2 NADIRA result NotDetected Normal (applies to non-n umeric results) [facility] This nucleic acid amplification test was developed and its performance characteristics determined by [employer]. Nucleic acid amplification tests include PCR and TMA. This test has not been FDA cleared or approved. This test has been authorized by FDA under an Emergency Use Authorization (EUA). This test is only authorized for the duration of time the declaration that circumstances exist justifying the authorization of the emergency use of in vitro diagnostic tests for detection of SARS-CoV-2 virus and/or diagnosis of COVID-19 infection under section 564(b)(1) of the Act, 21 U.S.C. 360bbb-3(b) (1), unless the authorization is terminated or revoked sooner. When diagnostic testing is negative, the possibility of a false negative result should be considered in the context of a patient's recent exposures and the presence of clinical signs and symptoms consistent with COVID-19. An individual without symptoms of COVID-19 and who is not shedding SARS-CoV-2 virus would expect to have a negative (not detected) result in this assay. Performed at: [address] [id number] Equipment Specialist: Sandra Pope MD, Phone: [phone] This nucleic acid amplification test was developed and its performance characteristics determined by [employer]. Nucleic acid amplification tests include PCR and TMA. This test has not been FDA cleared or approved. This test has been authorized by FDA under an Emergency Use Authorization (EUA). This test is only authorized for the duration of time the declaration that circumstances exist justifying the authorization of the emergency use of in vitro diagnostic tests for detection of SARS-CoV-2 virus and/or diagnosis of COVID-19 infection under section 564(b) (1) of the act, 21 U.S.C.360bbb-3 (b) (1), unless the authorization is terminated or revoked sooner. When diagnostic testing is negative, the possibility of a false negative result should be considered in the context of a patient's recent exposures and the presence of clinical signs and symptoms consistent with COVID-19. An individual without symptoms of COVID-19 and who is not shedding SARS-CoV-2 virus would expect to have a negative (not detected) result in this assay. Performing Site : [address] [address] Director : Sandra Pope MD [phone] ID Date Data Source [id number] 11/08/2020 11:22:00 PM EST [facility] Name Value Range Interpretation Code Description Data Kamryn rce(s) Supporting Document(s) SARS-CoV-2 NADIRA result NotDetected Normal (applies to non-n umeric results) [facility] This nucleic acid amplification test was developed and its performance characteristics determined by [employer]. Nucleic acid amplification tests include PCR and TMA. This test has not been FDA cleared or approved. This test has been authorized by FDA under an Emergency Use Authorization (EUA). This test is only authorized for the duration of time the declaration that circumstances exist justifying the authorization of the emergency use of in vitro diagnostic tests for detection of SARS-CoV-2 virus and/or diagnosis of COVID-19 infection under section 564(b)(1) of the Act, 21 U.S.C. 360bbb-3(b) (1), unless the authorization is terminated or revoked sooner. When diagnostic testing is negative, the possibility of a false negative result should be considered in the context of a patient's recent exposures and the presence of clinical signs and symptoms consistent with COVID-19. An individual without symptoms of COVID-19 and who is not shedding SARS-CoV-2 virus would expect to have a negative (not detected) result in this assay. Performed at: [address] [id number] Equipment Specialist: Sandra Pope MD, Phone: [phone] ID Date Data Source [id number] 09/20/2020 02:18:00 PM EDT [facility] Name: EARNEST WARNER Med Rec #: [id number] 67 : 1935 Age/Sex: 85M Date of Service: 09/20/20 PHYSICIAN CHART Physician Documentation [facility] Name: Earnest Warner Age: 85 yrs Sex: Male : 1935 Arrival Date: 09/20/2020 Time: 14:18 Bed FT1 Private MD: Josephine Ordaz ED Physician Isiah Elkins Disposition: 09/20 15:43 Attestation: Patient was seen by the Advanced Practice Provider. Mindy hodges was personally available in the department for consultation but did not see or discuss the patient with them. HPI: 15:00 This 85 yrs old Male presents to ER via Walk-In with jrl1 complaints of Arm Injury. 15:00 The patient or guardian complains of contusion, injury, pain, that is jrl1 acute. The complaints affect the posterior aspect of right shoulder and right wrist. Context: The problem was sustained at home, resulted from a fall, while walking. Onset: The symptoms/episode began/occurred acutely, yesterday. Treatment prior to arrival includes: icing the affected extremity. Modifying factors: The symptoms are alleviated by remaining still. Associated signs and symptoms: The patient has no apparent associated signs or symptoms. Severity of symptoms: At their worst the symptoms were moderate, earlier today. The patient has not experienced simila r symptoms in the past. pt states he was walking outside had a mis-step falling backwards landing on his posterior right shoulder and right wrist he states he has a bruise on his shoulder he used ice that helps a little he denies hitting head or neck and denies any other injuries he states he is on eliquis. Historical: - Allergies: No known drug Allergies; - Home Meds: 1. atenolol 25 mg Oral tab 1 tab once daily for will begin after Lisinopril is completed 2. finasteride 5 mg Oral tab 1 tab once daily 3. Fish Oil Oral 4. Flomax 0.4 mg Oral cp24 1 cap once daily 5. Iron CR 250 mg Oral cpER 6. Lasix 20 mg Oral tab 1 tab once daily 7. lisinopril 2.5 mg Oral tab once daily 8. metoprolol succinate 25 mg Tb24 1 tab once daily 9. omeprazole 20 mg Oral cpDR 10. potassium chloride 20 mEq Oral TbTQ 1 tab once daily 11. simvastatin 20 mg Oral tab 1 tab once daily 12. Xarelto 20 mg Oral tab 1 tab once daily - PMHx: ATRIAL FIB; BPH; HTN - hypertension; Hyperlipidemia; - PSHx: heart ablation; pacemaker; - Med Reconciliation:: Green Alert: The patient's med list is complete to the best of the nurse's/provider's knowledge. Medications reviewed, completed by nurse verbally from patient/family. - Immunization history: The patients tetanus immunization is up to date. - Advance directive: There is no existing advanced directive. Information offered. - Family History:: mother : unknown medical history. Father : unknown medical history. - Social History: Smoking status (Tobacco): Patient states he/she has never smoked tobacco. No barriers to communication noted, The patient speaks fluent Icelandic. ROS: 15:03 Constitutional: Negative for fever, chills, and weight loss. jrl1 MS/extremity: Positive for contusion, pain, of the right wrist and posterior aspect of right shoulder. Skin:. All other systems are negative. Exam: 15:03 Constitutional: This is a well developed, well nourished patient who jrl1 is awake, alert, and in no acute distress. 15:03 Head/face: Exam is negative for abnormalities. 15:03 Eyes: Periorbital structures: Pupils: Extraocular movements: Conjunctiva: normal. 15:03 ENT: External ear(s): Nose: Mouth: Voice: is normal. 15:03 Neck: External neck: is normal, C-spine: appears grossly normal, Trachea: is midline with no obvious abnormalities, ROM/movement: is normal. 15:03 Chest/axilla: Exam negative for abnormalities. 15:03 Cardiovascular: Rate: Rhythm: Pulses: Heart sounds: normal. 15:03 Respiratory: the patient does not display signs of respiratory distress. 15:03 Abdomen/GI: Inspection: abdomen appears normal, Bowel sounds: normal, Palpation: abdomen is soft and non-tender. 15:03 Back: pain, is absent, ROM is normal, vertebral tenderness, is not appreciated, muscle spasm, is not present. 15:03 : CVA tenderness, is absent. 15:03 Musculoskeletal/extremity: Extremities: grossly normal except: noted in the right wrist and posterior aspect of right shoulder: contusion, pain, ROM: intact in all extremities, Circulation is intact in all extremities. Sensation intact. 15:03 Skin: Appearance: Color: Temperature: Moisture: normal moisture. 15:03 Neuro: Orientation: is normal, Sensation: is normal. 15:03 Psych: Behavior/mood is pleasant, cooperative. Vital Signs: 14:25 BP 136 / 73; Pulse 92; Resp 18 S; Temp 97.3(TE); Pulse Ox 96% on R/A; aminata Weight 90.72 kg (R); Height 5 ft. 10 in. (177.80 cm) (R); 15:52 BP 147 / 90; Pulse 84; Resp 18; Temp 98.2(TE); Pulse Ox 99% on R/A; devin 14:25 Body Mass Index 28.70 (90.72 kg, 177.80 cm) aminata MDM: 14:37 Patient medically screened. jrl1 15:05 Data reviewed: vital signs, nurses notes. jrl1 15:33 ED course: x-rays negative for fracture. jrl1 09/20 14:44 Order name: Shoulder Rt - Xray jrl1 09/20 14:44 Order name: Wrist Rt Min 3 Views - XRP jrl1 Dispensed Medications: No medications were administered Disposition Summary: 09/20/20 15:34 Discharge Ordered Location: Home/Self Care jrl1 Problem: new jrl1 Symptoms: are unchanged jrl1 Condition: Good jrl1 Diagnosis - Contusion of right shoulder jrl1 - Other specified sprain of right wrist jrl1 Followup: jrl1 - With: Josephine Ordaz - When: 2 - 3 days - Reason: Recheck today's compl aints Discharge Instructions: - Discharge Summary Sheet jrl1 - Contusion jrl1 - Wrist Sprain, Adult jrl1 Forms: - Medication Reconciliation jrl1 Signatures: Dispatcher [employer] EDMS Isiah Elkins MD MD jam2 Stoney Dumont PA PA jrl1 Natalie Tenorio, RN RN aminata Name Value Range Interpretation Code Description Data Kamryn rce(s) Supporting Document(s) ID Date Data Source [id number] 09/20/2020 02:18:00 PM EDT [facility] Name: EARNEST WARNER [facility] Rec #: [id number] 67 : 1935 Age/Sex: 85M Date of Service: 09/20/20 DISPOSITION SUMMARY Discharge Summary [facility] Name:Earnest Warner Emergency Department Age:85 yrs Sex:Male :1935 Arrival:09/20/2020 14:18 Departure Date09/20/2020 Departure Time15:53 Private MD:Josephine Ordaz Outcome: Discharge Location: Home/Self Care Condition: Good Chief Complaint: Arm Injury Diagnosis: Contusion of right shoulder, Other specified sprain of right wrist Prescriptions: Follow up: Josephine Ordaz Custom Notes: ice alternating with warm moist heat tylenol for pain followup with silvia Pedersen and orthopedics as needed Attending Physician: Isiah Elkins MD Private MD: Josephine Ordaz Mid Level Provider: Stoney Dumont PA Followup Physician: Josephine Ordaz Orders: Shoulder Rt - Xray, Wrist Rt Min 3 Views - XRP Discharge Instruction: Discharge Summary Sheet, Contusion, Wrist Sprain, Adult, Medication Reconciliation Name Value Range Interpretation Code Description Data Kamryn rce(s) Supporting Document(s) ID Date Data Source [id number] 09/20/2020 02:18:00 PM EDT [facility] Name: EARNEST WARNER [facility] Rec #: [id number] 67 : 1935 Age/Sex: 85M Date of Service: 09/20/20 NURSE CHART Nurse's Notes [facility] Name: Earnest Warner Age: 85 yrs Sex: Male : 1935 Arrival Date: 09/20/2020 Time: 14:18 Bed FT1 Private MD: Josephine Ordaz Diagnosis: Contusion of right shoulder;Other specified sprain of right wrist Presentation: 09/20 14:28 Transition of care: patient was not received from another setting of [facility]. 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 when he was moving part of the load on the trailer the opposite end flew up in the air and he fell on to the cement onto his right shoulder. Denies pain but does not have full ROM of the shoulder. No head injury and no LOC. Have you travelled in the last 30 days? No. Have you had contact with an individual with a confirmed diagnosis of Ebola or COVID-19? No. 14:28 Method Of Arrival: Walk-In [facility] 14:28 Acuity: Semi-Urgent - 4 [facility] Triage Assessment: 14:31 SEPSIS SCREEN: A Confirmed or Suspected Infection is Unknown, their aminata temperature is not <96.8 or >100.9, their heart rate is >90, their RR is not >20, it is unknown if their WBC is <4 or >12, the patient does not have new or unexplained altered mental status. SIRS or Sepsis criteria is not present. Suicide Screening: Have you had thoughts of harming yourself or others? No. The patient appears to have no apparent distress, The patient is cooperative. The patient denies having pain. Historical: - Allergies: No known drug Allergies; - Home Meds: 1. atenolol 25 mg Oral tab 1 tab once daily for will begin after Lisinopril is completed 2. finasteride 5 mg Oral tab 1 tab once daily 3. Fish Oil Oral 4. Flomax 0.4 mg Oral cp24 1 cap once daily 5. Iron CR 250 mg Oral cpER 6. Lasix 20 mg Oral tab 1 tab once daily 7. lisinopril 2.5 mg Oral tab once daily 8. metoprolol succinate 25 mg Tb24 1 tab once daily 9. omeprazole 20 mg Oral cpDR 10. potassium chloride 20 mEq Oral TbTQ 1 tab once daily 11. simvastatin 20 mg Oral tab 1 tab once daily 12. Xarelto 20 mg Oral tab 1 tab once daily - PMHx: ATRIAL FIB; BPH; HTN - hypertension; Hyperlipidemia; - PSHx: heart ablation; pacemaker; - Med Reconciliation:: Green Alert: The patient's med list is complete to the best of the nurse's/provider's knowledge. Medications reviewed, completed by nurse verbally from patient/family. - Immunization history: The patients tetanus immunization is up to date. - Advance directive: There is no existing advanced directive. Information offered. - Family History:: mother : unknown medical history. Father : unknown medical history. - Social History: Smoking status (Tobacco): Patient states he/she has never smoked tobacco. No barriers to communication noted, The patient speaks fluent Icelandic. Screenin:58 AUDIT 1. How often do you have a drink containing alcohol? Never (0 devin points). Drug Abuse Screening Test: 1. Have you used drugs other than those required for medical reasons? No (0 points), screen is complete, no risk. Abuse screen: Denies threats or abuse. Denies injuries from another. Nutritional screening: No deficits noted. The patient has a history of falls (25 points). The patient uses crutches/cane to ambulate (15 points). The patient is a MODERATE FALL RISK (Sparrow Scale=25-45 pts). Fall prevention measures have been instituted. Side rails are up, patient is being reassessed frequently, Family Present and informed to notify staff if they need to leave the bedside, Patient and Family have been educated on fall prevention program and strategies. Assessment: 14:42 See Triage Assessment. No pain is apparent. The patient complains of edvin pain in posterior aspect of right shoulder. The patient also complains of pain in right wrist. The patient states the pain began 1days ago. The patient appears to have no apparent distress, The patient is behaving appropriately according to age, cooperative, pleasant. Neuro: Level of Consciousness is awake, alert, Patient is oriented to person, place and time. Respiratory: Airway is patent. Respiratory effort is even, Respiratory pattern is regular. Derm: Skin is intact, Skin is normal. Musculoskeletal: Capillary Refill is < 3 seconds, in bilateral fingers No deformity noted. Range of motion limited in right arm Swelling present in right hand and right wrist. Pulses present in right radial artery and left radial artery. Injury Description: Fall. Vital Signs: 14:25 BP 136 / 73; Pulse 92; Resp 18 S; Temp 97.3(TE); Pulse Ox 96% on R/A; aminata Weight 90.72 kg (R); Height 5 ft. 10 in. (177.80 cm) (R); 15:52 BP 147 / 90; Pulse 84; Resp 18; Temp 98.2(TE); Pulse Ox 99% on R/A; devin 14:25 Body Mass Index 28.70 (90.72 kg, 177.80 cm) [facility] ED Course: 14:19 Patient arrived in ED. rld 14:28 Josephine Ordaz is Private Physician. aminata 14:31 Triage completed. aminata 14:31 Arm band placed on right wrist. Patient placed in exam room Patient aminata has correct armband on for positive identification. 14:37 Rema Duong, PROSPER is Primary Nurse. devin 14:37 Stoney Dumont PA is PHCP. jrl1 14:37 Isiah Elkins MD is Attending Physician. jrl1 14:51 Radiology: Patient to X-ray at 14:51. devin 14:58 Shoulder Rt - Xray Sent. devin 14:58 Wrist Rt Min 3 Views - XRP Sent. devin 15:10 Radiology: Patient returned from X-Ray at 15:10. devin 15:34 Josephine Ordaz is Referral Physician. jrl1 15:36 No procedures ordered. No diagnostic tests ordered. devin Administered Medications: No medications were administered Outcome: 15:34 Discharge ordered by . jrl1 15:52 Reassessment: Visual reassessment shows no worsening symptoms, vital devin signs not warranted. 15:52 Patient verbalized understanding of disposition instructions. Patient has no functional deficits. 15:52 Patient discharged to home via wheelchair, with family. 15:52 Condition: stable 15:52 Discharge instructions given to patient, family, Patient was instructed on discharge instructions, follow up and referral plans, medication usage, importance Rest, Ice, Compression, and Elevation (R.I.C.E.) in the early days following an injury. safety practices, The patient demonstrated understanding of instructions, medications, No prescriptions given. 15:52 Vitals are Complete in accordance with Emergency Department Policy. 15:53 Patient left the ED. devin Signatures: Stoney Dumont PA PA jrl1 Natalie Tenorio RN RN kal Sykes, Rebecca, RN RN ras Devine, Rachel rld Name Value Range Interpretation Code Description Data Kamryn rce(s) Supporting Document(s) ID Date Data Source [id number] 11/23/2020 10:19:00 AM [facility] Name: EARNEST WARNER : 1935 A ge/Sex: 85M Ordering Provider: Isiah Elkins MD Med Rec #: [id number] Reg Status: [facility] ER Room #: Date of Service: 09/20/20 Report Number: [id number] XRP/No Charge Exam Error Reason for exam: INJURY, RT WRIST AND RT SHOULDER Reason exam cancelled: IMAGES AND REPORTS LOST IN CYBER ATTACK REPORT SIGNATURE ON FILE Reported By: Wilton Zuniga 11/23/20 1020 Dictation Date/Time: 09/20/20 1445 Transcribed Date/Time: 11/23/20 1019 [employer]: EMEKA Name Value Range Interpretation Code Description Data Kamryn rce(s) Supporting Document(s) Procedure Social History Code Duration Value Status Description Data Source(s ) Smoking 06/08/2021 12:00:00 AM EDT Former Smoker completed Former Smoker eCW1 ([facility]) Smoking 06/08/2021 12:00:00 AM EDT Former Smoker completed Former Smoker eCW1 ([facility]) Smoking 01/18/2021 12:00:00 AM EST Former Smoker completed Former Smoker eCW1 ([facility]) Smoking 01/18/2021 12:00:00 AM EST Former Smoker completed Former Smoker eCW1 ([facility]) Smoking 01/18/2021 12:00:00 AM EST Former Smoker completed Former Smoker eCW1 ([facility]) Smoking 01/18/2021 12:00:00 AM EST Former Smoker completed Former Smoker eCW1 ([facility]) Smoking 01/18/2021 12:00:00 AM EST Former Smoker completed Former Smoker eCW1 ([facility]) Smoking 12/14/2020 12:00:00 AM EST Former Smoker completed Former Smoker eCW1 ([facility]) Smoking 12/14/2020 12:00:00 AM EST Former Smoker completed Former Smoker eCW1 ([facility]) Smoking 12/14/2020 12:00:00 AM EST Former Smoker completed Former Smoker eCW1 ([facility]) Vital Signs ID Date Data Source UNK Name Value Range Interpretation Code Description Data Source(s) Body weight 200.00 [lb_av] 200.00 [lb_av] MEDEN T ([facility]) Heart rate 72 /min 72 /min MEDENT ([facility]) regular Systolic blood pressure--sitting 128 mm[Hg] 128 mm[Hg] MEDENT ([facility]) Ra, medium cuff Diastolic blood pressure--sitting 72 mm[Hg] 72 mm[Hg] MEDENT ([facility]) Ra, medium cuff Body weight 204 [lb_av] 204 [lb_av] eCW1 ([facility]) Body height 70 [in_i] 70 [in_i] eCW1 ([facility]) Body mass index (BMI) [Ratio] 29.27 kg/m2 29.27 kg/m2 W1 ([facility]) Heart rate 75 /min 75 /min eCW1 ([facility] hospital) Respiratory rate 20 /min 20 /min eCW1 (Counts include 234 beds at the [facility]) Body temperature 96.7 [degF] 96.7 [degF] eCW1 ( [facility]) Systolic blood pressure 149 mm[Hg] 149 mm[Hg] e CW1 ([facility]) Diastolic blood pressure 94 mm[Hg] 94 mm[Hg] eCW1 ([facility]) Diastolic blood pressure 70 mm[Hg] 70 mm[Hg] eCW1 ([facility]) Body weight 201 [lb_av] 201 [lb_av] eCW1 ([facility]) Body height 70 [in_i] 70 [in_i] eCW1 ([facility]) Body mass index (BMI) [Ratio] 28.84 kg/m2 28.84 kg/m2 eCW1 ([facility]) Heart rate 89 /min 89 /min eCW1 ([facility] access hospital) Respiratory rate 18 /min 18 /min eCW1 (Counts include 234 beds at the [facility]) Systolic blood pressure 138 mm[Hg] 138 mm[Hg] e CW1 ([facility]) ID Date Data Source [id number] 10/28/2021 08:43:00 AM [facility] Name Value Range Interpretation Code Description Data Source(s) Weight (Calculated Kilograms) 98.49 98.49 [facility] Height (Calculated Centimeters) 182.88 182. 88 [facility] Body Mass Index (BMI) 29.4 29.4 [facility] Weight (Calculated Kilograms) 98.49 98.49 [facility] Height (Calculated Centimeters) 182.88 182. 88 [facility] Body Mass Index (BMI) 29.4 29.4 [facility] Weight (Calculated Kilograms) 98.49 98.49 [facility] Height (Calculated Centimeters) 182.88 182. 88 [facility] Body Mass Index (BMI) 29.4 29.4 [facility] Hospital ID Date Data Source [id number] 06/14/2021 07:41:00 AM [facility] Name Value Range Interpretation Code Description Data Source(s) Weight (Calculated Kilograms) 98.49 98.49 [facility] Height (Calculated Centimeters) 182.88 182. 88 [facility] Body Mass Index (BMI) 29.4 29.4 [facility] ID Date Data Source [id number] 05/25/2021 08:13:00 AM [facility] Name Value Range Interpretation Code Description Data Source(s) Weight (Calculated Kilograms) 98.49 98.49 [facility] Height (Calculated Centimeters) 182.88 182. 88 [facility] Body Mass Index (BMI) 29.4 29.4 [facility] Weight (Calculated Kilograms) 98.49 98.49 [facility] Height (Calculated Centimeters) 182.88 182. 88 [facility] Body Mass Index (BMI) 29.4 29.4 [facility] Weight (Calculated Kilograms) 98.49 98.49 [facility] Height (Calculated Centimeters) 182.88 182. 88 [facility] Body Mass Index (BMI) 29.4 29.4 [facility] ID Date Data Source [id number] 12/23/2020 01:06:00 PM [facility] Name Value Range Interpretation Code Description Data Source(s) Weight (Calculated Kilograms) 98.49 98.49 [facility] Height (Calculated Centimeters) 182.88 182. 88 [facility] Body Mass Index (BMI) 29.4 29.4 [facility] Weight (Calculated Kilograms) 98.49 98.49 [facility] Height (Calculated Centimeters) 182.88 182. 88 [facility] Body Mass Index (BMI) 29.4 29.4 [facility] Weight (Calculated Kilograms) 98.49 98.49 [facility] Height (Calculated Centimeters) 182.88 182. 88 [facility] Body Mass Index (BMI) 29.4 29.4 [facility] ID Date Data Source [id number] 12/10/2020 09:17:00 AM [facility] Hospital Name Value Range Interpretation Code Description Data Source(s) Weight (Calculated Kilograms) 98.49 98.49 [facility] Height (Calculated Centimeters) 182.88 182. 88 [facility] Body Mass Index (BMI) 29.4 29.4 [facility] ID Date Data Source [id number] 11/20/2020 04:27:00 PM [facility] Hospital Name Value Range Interpretation Code Description Data Source(s) Weight (Calculated Kilograms) 98.49 98.49 [facility] Height (Calculated Centimeters) 182.88 182. 88 [facility] Body Mass Index (BMI) 29.4 29.4 [facility] Weight (Calculated Kilograms) 98.49 98.49 [facility] Height (Calculated Centimeters) 182.88 182. 88 [facility] Body Mass Index (BMI) 29.4 29.4 [facility] ID Date Data Source [id number] 12/27/2020 08:27:00 AM [facility] Hospital Name Value Range Interpretation Code Description Data Source(s) Weight (Calculated Kilograms) 98.49 98.49 [facility] Height (Calculated Centimeters) 182.88 182. 88 [facility] Body Mass Index (BMI) 29.4 29.4 [facility] Weight (Calculated Kilograms) 98.49 98.49 [facility] Height (Calculated Centimeters) 182.88 182. 88 [facility] Body Mass Index (BMI) 29.4 29.4 [facility] Weight (Calculated Kilograms) 98.49 98.49 [facility] Height (Calculated Centimeters) 182.88 182. 88 [facility] Body Mass Index (BMI) 29.4 29.4 [facility] ID Date Data Source [id number] 10/05/2020 09:06:00 AM EST [facility] Hospital Name Value Range Interpretation Code Description Data Source(s) Weight (Calculated Kilograms) 98.49 98.49 [facility] Height (Calculated Centimeters) 182.88 182. 88 [facility] Body Mass Index (BMI) 29.4 29.4 [facility] Weight (Calculated Kilograms) 98.49 98.49 [facility] Height (Calculated Centimeters) 182.88 182. 88 [facility] Body Mass Index (BMI) 29.4 29.4 [facility] ID Date Data Source [id number] 09/20/2020 07:36:00 PM EDT [facility] Hospital Name Value Range Interpretation Code Description Data Source(s) Weight (Calculated Kilograms) 98.49 98.49 [facility] Height (Calculated Centimeters) 182.88 182. 88 [facility] Body Mass Index (BMI) 29.4 29.4 [facility] Weight (Calculated Kilograms) 98.49 98.49 [facility] Height (Calculated Centimeters) 182.88 182. 88 [facility] Body Mass Index (BMI) 29.4 29.4 [facility] Patient Treatment Plan of Care Planned Activity Planned Date Details Description Data Source (s) 24 HR mirabegron 50 MG Extended Release Oral Tablet [M yrbetriq] 12/20/2020 12:00:00 AM EST eCW1 ([facility]) 24 HR mirabegron 50 MG Extended Release Oral Tablet [M yrbetriq] 12/20/2020 12:00:00 AM EST eCW1 ([facility]) 24 HR Fesoterodine Fumarate 4 MG Extended Release Oral Tablet [Toviaz] 12/20/2020 12:00:00 AM EST eCW1 ([facility]) 24 HR Fesoterodine Fumarate 4 MG Extended Release Oral Tablet [Toviaz] 12/20/2020 12:00:00 AM EST eCW1 ([facility]) 24 HR mirabegron 50 MG Extended Release Oral Tablet [Cong yrbetriq] 12/20/2020 12:00:00 AM EST eCW1 ([facility]) 24 HR Fesoterodine Fumarate 4 MG Extended Release Oral Tablet [Toviaz] 12/20/2020 12:00:00 AM EST eCW1 ([facility])
[2021-11-01] MEDS ORDERED: ceFAZolin SOD 2 GM in IV 1 EA IV ONE (11:30)
[2021-11-01] MEDS ORDERED: XARE20TA (11:50)
[2021-11-01] MEDS ORDERED: K-TA10TA PO (11:50)
[2021-11-01] MEDS ORDERED: FINA5TAB2 (11:50)
[2021-11-01] MEDS ORDERED: TOVI8TAB (11:50)
[2021-11-01] MEDS ORDERED: SIMV20TA22 (11:50)
[2021-11-01] MEDS ORDERED: TAMS1CAP17 (11:50)
[2021-11-01] MEDS ORDERED: METO1TAB87 (11:50)
[2021-11-01] MEDS ORDERED: ALBU8.5H (11:50)
[2021-11-01] MEDS ORDERED: OMEP-218 (11:50)
[2021-11-01] MEDS ORDERED: IRON240T PO (11:51)
[2021-11-01] MEDS ORDERED: FISH1000 PO (11:51)
[2021-11-01] MEDS ORDERED: LISI2.5T9 PO (11:52)
[2021-11-01] MEDS ORDERED: XARE20TA PO (11:53)
[2021-11-01] MEDS ORDERED: VENTAER INH (11:53)
[2021-11-01 12:27] LABS: INR 1.28; PROTHROMBIN TIME 16.5 SECONDS (12.7-14.5)
[2021-11-01 12:28] LABS: PARTIAL THROMBOPLASTIN TIME 42.4 SECONDS (25.9-37.0)
[2021-11-01] MEDS ORDERED: BACITRACIN OINTMENT 30GM TUBE As Ordered ONE (14:43)
[2021-11-01] MEDS ORDERED: LIDOCAINE 1% MDV 20ML VIAL As Ordered ONE (14:43)
[2021-11-01] MEDS ORDERED: VANCOMYCIN 1000MG/20ML VIAL As Ordered ONE (14:44)
[2021-11-01] MEDS ORDERED: propofoL 500 MG/50 ML VIAL As Ordered ONE (14:47)
[2021-11-01] MEDS ORDERED: dexameTHASONE 4 MG/ML 1ML VIAL (J1100 PER 1MG) As Ordered ONE (14:47)
[2021-11-01] MEDS ORDERED: LIDOCAINE 2% 100MG/5ML SDV (FOR ANES.) As Ordered ONE (14:47)
[2021-11-01] MEDS ORDERED: fentaNYL 100 MCG/2 ML INJECTION (J3010) As Ordered ONE (14:47)
[2021-11-01] MEDS ORDERED: ONDANSETRON 4MG/2ML VIAL As Ordered ONE (14:48)
[2021-11-01] MEDS ORDERED: ACETAMINOPHEN 1000MG 100ML IV BTL (OFIRMEV) (J0131 PER 10MG) As Ordered ONE (15:51)
[2021-11-01 17:05] VITALS: BP 119/69
--- NOTE | 2021-11-02 12:39 | RO ---
OPERATIVE NOTE DATE OF OPERATION: 11/01/2021 PREOPERATIVE DIAGNOSIS: Pacemaker battery depletion. POSTOPERATIVE DIAGNOSIS: Pacemaker battery depletion. FINDINGS: Pacemaker battery depletion. PROCEDURE PERFORMED: Explantation of old dual chamber pacemaker pulse generator and implantation of new dual chamber pacemaker pulse generator. SURGEON: Nathan Boateng MD STRUCTURAL DRAFTER: None. ANESTHESIA: Lidocaine 1% local/monitored anesthesia care. SPECIMEN: [employer] dual chamber pacemaker pulse generator model K273 with serial #[id number]. No blood products replaced. No complications. No drains. ESTIMATED BLOOD LOSS: Less than 3 mL. DESCRIPTION OF PROCEDURE: The patient was prepped and draped over the left pectoral region. Lidocaine 1% was used for local anesthetic. An incision was made over the existing pacemaker incision line with a PEAK PlasmaBlade. This was used to dissect down to and through the anterior capsule overlying the header of the pacemaker pulse generator. The pacemaker pulse generator was removed from the pocket. The atrial and ventricular leads were removed and placed in their respective ports in the new pacemaker pulse generator header. Each one was secured by tightening the set screw with hex screwdriver. A pole test was applied to each lead to demonstrate that they were secured within the header. I extended the caudal aspect of the pacemaker pocket a small amount to accommodate the larger size of the new pacemaker pulse generator. I then took a medium size TYRX antimicrobial envelope and cut into four pieces which were placed into the floor of the existing pacemaker pocket. The new pacemaker pulse generator was then placed into the pacemaker pocket. The deep layer was closed using continuous suture consisting of 2-0 Vicryl. The skin was then closed using madhu. The patient tolerated the procedure well without any immediate complications. The existing right atrial lead was Medtronic model 4076, serial #[id number]. Device based measurements through the new pacemaker pulse generator showed the patient to be in atrial fibrillation with 2.4 millivolts and lead impedance of 425 ohms. The existing right ventricular lead was a Guidant model 4137 with serial #[id number]. Device based testing in the operating room for right ventricular lead in bipolar configuration showed R wave with amplitude of 15.3 millivolts, capture threshold of 0.9 volts at 0.4 milliseconds with lead impedance of 575 ohms. The new pacemaker pulse generator implanted was [employer] Accolade MRI EL with model #L331, serial #[id number].
== END 2021-11-01 17:06 | disposition home or self-care (01) ==
LOC: M SDC 11:08
PROVIDERS: ATTEND Internal Medicine Cardiovascular Disease
DX: Z45.010 Encounter for checking and testing of cardiac pacemaker pulse generator [battery] (principal); I10 Essential (primary) hypertension; I48.0 Paroxysmal atrial fibrillation; Z79.01 Long term (current) use of anticoagulants; Z79.899 Other long term (current) drug therapy
CPT/HCPCS: 33228; 36415; 85610; 85730; C1785; J0131; J0690; J1100; J2405; J3010; U0002